=== PATIENT | male | born 1945 | race Caucasian/White ===

== ENCOUNTER → 2016-11-06 | Outpatient (REF) | payer MEDICARE | LOC: M SFHCPLAZ 13:20 | PROVIDERS: ATTEND Family Medicine | DX: Z12.11 Encounter for screening for malignant neoplasm of colon (principal) ==

== ENCOUNTER → 2016-11-09 | Outpatient (CLI) | payer BC, MEDICARE ==
[2016-11-09 09:16] LABS: CALCIUM LEVEL 9.4 MG/DL (8.8-10.2); CREATININE FOR GFR 1.33 MG/DL (0.70-1.30); GLOMERULAR FILTRATION RATE 56.3 (>42); POTASSIUM SERUM 5.1 MEQ/L (3.5-5.1)
== END ==
LOC: M LAB 08:27
PROVIDERS: ATTEND Family Medicine
DX: E66.9 Obesity, unspecified (principal)

== ENCOUNTER → 2016-11-16 | Outpatient (CLI) | payer MEDICARE ==
--- NOTE | 2016-11-16 09:57 | REP ---
ABDOMINAL AORTIC ULTRASOUND: 11/16/2016. Clinical history: Tobacco use. Evaluate for atherosclerotic disease. No comparison study. Findings: The abdominal aorta from proximal to renal artery level is very poorly evaluated due to extensive gas shadowing and precise measurements cannot be made as it is not well visualized. The mid aorta below the renal artery shows AP diameter 1.6 cm x 2.4 cm transverse. The distal aorta shows slight aneurysmal dilatation up to 3.1 cm AP x 2.9 cm transverse. Both common iliac arteries are ectatic with the right 1.8 cm and the left 1.6 cm. There are atherosclerotic changes circumferentially in the mid to distal aorta. Impression: 1. 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 Atherosclerotic plaque and ectatic bilateral common iliac arteries. The proximal aorta is obscured by extensive gas shadowing. Signed by Naeem Matthew MD 11/16/2016 10:18 A
== END ==
LOC: M RAD 07:52
PROVIDERS: ATTEND Family Medicine
DX: Z87.891 Personal history of nicotine dependence (principal); I71.4 Abdominal aortic aneurysm, without rupture; I25.10 Atherosclerotic heart disease of native coronary artery without angina pectoris

== ENCOUNTER → 2016-11-20 | Outpatient (REF) | payer MEDICARE, BC ==
[2016-11-20 12:05] LABS: ANION GAP 8 MEQ/L (8-16); BLOOD UREA NITROGEN 24 MG/DL (7-18); CALCIUM LEVEL 9.6 MG/DL (8.8-10.2); CARBON DIOXIDE LEVEL 29 MEQ/L (21-32); CHLORIDE LEVEL 105 MEQ/L (98-107); CREATININE FOR GFR 1.24 MG/DL (0.70-1.30); GLOMERULAR FILTRATION RATE > 60.0 (>42); GLUCOSE, FASTING 87 MG/DL (83-110); POTASSIUM SERUM 4.2 MEQ/L (3.5-5.1); SODIUM LEVEL 142 MEQ/L (136-145)
== END ==
LOC: M SFHCPLAZ 09:18
PROVIDERS: ATTEND Family Medicine
DX: R79.89 Other specified abnormal findings of blood chemistry (principal)

== ENCOUNTER → 2017-01-15 | Day surgery (SDC) | payer MEDICARE ==
[~2017-01-15] VITALS: Ht 175.3 cm; Wt 104.3 kg
[~2017-01-15] MED LIST: EPINEPHrine 1MG/ML INJ 30ML MD-VIAL As Ordered ONE; EPINEPHrine INJ 1 MG/ML 1ML VIAL/AMP ONE; GLYCOPYRROLATE INJ 0.2 MG/ML 2 ML VIAL As Ordered ONE; LIDOCAINE 2% INJ 100 MG/5 ML SDV (FOR ANES.) As Ordered ONE; LR 1,000 ML IV SCH; MIDAZOLAM INJ 2 MG/2 ML VIAL (J2250) As Ordered ONE; MIDAZOLAM INJ 2 MG/2 ML VIAL (J2250) IV ONE; NEOSTIGMINE 1MG/ML 5 ML SYRINGE (J2710) As Ordered ONE; ONDANSETRON 4MG/2ML VIAL (J2405) As Ordered ONE; ONDANSETRON 4MG/2ML VIAL (J2405) IV PRN; PERCOCET 5MG/325MG TAB PO PRN; PHENYLephrine HCL 500 MCG/5 ML (100MCG/ML) SYRINGE (J2370) As Ordered ONE; PROPOFOL 200 MG/20 ML VIAL As Ordered ONE; ROCURONIUM BROMIDE 50 MG/5 ML VIAL As Ordered ONE; ROPIvacaine 0.5% 30 ML INJECTION (J2795) ONE; SUCCINYLCHOLINE 100 MG/5 ML SYRINGE (J0330) As Ordered ONE; dexameTHASONE 10 MG/1 ML VIAL PRES.FREE (J1100) ONE; ePHEDrine SULFATE 25 MG/5 ML(5MG/ML) SYRINGE As Ordered ONE; fentaNYL 100 MCG/2 ML INJECTION (J3010) As Ordered ONE; fentaNYL 100 MCG/2 ML INJECTION (J3010) IV ONE; fentaNYL 100 MCG/2 ML INJECTION (J3010) IV PRN; fentaNYL 250 MCG/5 ML INJECTION (J3010) As Ordered ONE
[2017-01-15 20:00] VITALS: BP 126/72
--- NOTE | 2017-01-15 23:45 | RO ---
DATE OF PROCEDURE: 01/15/2017 PREOPERATIVE DIAGNOSIS: Left shoulder recurrent massive rotator cuff tear. POSTOPERATIVE DIAGNOSIS: Left shoulder recurrent massive rotator cuff tear. PROCEDURE: 1. Left shoulder revision rotator cuff repair using arthroscopic Double-Row SpeedBridge technique. 2. Left shoulder arthroscopic biceps tenotomy. SURGEON: Dr. Floridalma Lucas SPECIAL WARFARE OPERATOR: Mr. Elmer Perez ANESTHESIA: General endotracheal tube anesthesia with left interscalene nerve block. COMPLICATIONS: None. FINDINGS: He had a massive tear involving the entire supraspinatus and part of the infraspinatus and the upper border of the subscapularis was frayed and partially torn, but the biceps was dislocated anteriorly. There was quite a bit of glenohumeral degenerative arthritis but no full thickness chondral defects were noted but his shoulder was clearly quite frayed. There was extensive scarring in the subacromial space from the prior open rotator cuff repair surgery, making visualization quite difficulty but eventually we were able to get a reasonable repair. DESCRIPTION OF PROCEDURE: Antibiotics were given intravenously preoperatively, then successful left interscalene nerve block and then a general endotracheal tube anesthetic was established, and he was placed in a semi-beach chair position. Spider shoulder miller was utilized. His left shoulder area was prepped and draped in the usual sterile fashion, then a routine diagnostic arthroscopy was performed through a posterior portal. The shoulder was noted to be quite arthritic with a significant amount of chondromalacia, which was debrided with a shaver. The biceps was subluxed medially. Because of that, I eventually released the biceps with the ablator wand and then readily was observable a large rotator cuff tear. Thus, I repositioned the scope such more in the subacromial space but it was in the bursa, and it took quite a bit of time to understand the fibrotic bursa and separate that out from the torn rotator cuff. But, eventually, I was able to get reasonable visualization, but it took quite a bit of time and careful dissection. We identified the previously placed cottony Deknatel sutures that were in the greater tuberosity. These were carefully removed with a pituitary rongeur, and then I was able to debride the supraspinatus and infraspinatus footprint of the greater tuberosity with the shaver and the ring curette and the ablator wand. Eventually, I was able to get reasonable visualization and then the rotator cuff was a little bit fibrotic but I felt still repairable. I tried to mobilize as much as I could on the bursal and the articular surface of the rotator cuff. It was basically a large crescent-shaped type tear. Once I had adequate visualization, then I placed two medial row anchors from the SpeedBridge suture kit and then passed all the limbs first, and used the retention sutures as horizontal mattress rip-stop sutures using [place] slider knots. I passed the anterior anchor first and then the posterior after passing the sutures, and then I began tying, beginning posteriorly but first the horizontal mattress rip-stop posteriorly was tied, limbs kept long and then I tied the anteromedial row rip-stop sutures with the [place] slider knot and several half hitches. Once those had all been tied, I then fixed the anterolateral row first by grabbing a suture limb from each of the anchors and loading them onto a lateral row SwiveLock and used the punch to make a hole and advance the anterolateral row anchor, making sure there was adequate tension on all the suture limbs and then inserted the SwiveLock with good fixation and then the limbs were cut short. The remaining sutures were passed through another SwiveLock for the posterolateral row and a punch was placed appropriately, then the SwiveLock advanced, and then secured all those suture limbs into the greater tuberosity. A nice repair was actually felt to have been obtained. Good photographic documentation was obtained. I brought the shoulder through a range of motion as I visualized arthroscopically, and there was good watertight closure. However, it is noteworthy, that this was a fairly large tear and the quality of the rotator cuff tendon tissue was a bit suspect. Thus, I am going to treat this postoperatively as a massive tear, keeping him for prolonged periods of time in his abduction pillow brace. Finding no other arthroscopically treatable pathology, I copiously irrigated out the subacromial space. The wounds were closed with interrupted nylon sutures, covered by Adaptic dry sterile bulky dressing. He was placed in his abduction pillow brace. Mr. Elmer Perez was critical to the success of the procedure by helping to position the patient, helped to manipulate the arm and to help pass sutures and close the wound, and helped position the patient on and off the operating table to help the operation go smoothly and efficiently.
== END | disposition home or self-care (01) ==
LOC: M SDC 08:55
PROVIDERS: ATTEND Orthopaedic Surgery
DX: M75.102 Unspecified rotator cuff tear or rupture of left shoulder, not specified as traumatic (principal); Z88.1 Allergy status to other antibiotic agents; Z87.891 Personal history of nicotine dependence
CPT/HCPCS: 29827; 29828; 64415; A4649; J0330; J0690; J1100; J2250; J2370; J2405; J2710; J2795; J3010

== ENCOUNTER → 2018-05-20 | Outpatient (CLI) | payer MEDICARE ==
[2018-05-20 09:59] LABS: ANION GAP 7 MEQ/L (8-16); BLOOD UREA NITROGEN 19 MG/DL (7-18); CALCIUM LEVEL 9.4 MG/DL (8.8-10.2); CARBON DIOXIDE LEVEL 26 MEQ/L (21-32); CHLORIDE LEVEL 107 MEQ/L (98-107); CREATININE FOR GFR 1.23 MG/DL (0.70-1.30); GLOMERULAR FILTRATION RATE > 60.0 (>42); GLUCOSE, FASTING 81 MG/DL (70-100); POTASSIUM SERUM 4.3 MEQ/L (3.5-5.1); SODIUM LEVEL 140 MEQ/L (136-145)
== END ==
LOC: M LAB 08:51
DX: R79.89 Other specified abnormal findings of blood chemistry (principal)
CPT/HCPCS: 80048

== ENCOUNTER 2018-08-17 10:15 | Emergency (ER) | payer MEDICARE ==
[2018-08-17 11:20] LABS: KETONE, URINE AUTO RFX NEGATIVE (NEGATIVE); LEUKOCYTE ESTERASE UR AUTO RFX NEGATIVE (NEGATIVE); MUCUS, URINE RFX SMALL (NEGATIVE); NITRITE, URINE AUTO RFX NEGATIVE (NEGATIVE); RBC, URINE AUTO RFX TNTC /HPF (0-3); SPECIFIC GRAVITY UR AUTO RFX 1.025 (1.002-1.035); SQUAM EPITHELIAL CELL UR AURFX 0 /HPF (0-6); WBC, URINE AUTO RFX 4 /HPF (0-3)
[2018-08-17] MEDS: NS 1,000 ML IV (12:39)
[2018-08-17 12:54] LABS: BASO % 0.4 % (0.0-1.0); EOS # 0.2 10^3/uL (0.0-0.50); EOS % 2.9 % (0.0-3.0); HEMATOCRIT 41.6 % (42.0-52.0); HEMOGLOBIN 14.1 g/dl (13.5-17.5); IMMATURE GRANULOCYTE % 0.4 % (0-3.0); LYMPH % 27.2 % (24.0-44.0); MEAN CORPUSCULAR HEMOGLOBIN 29.6 pg (27.0-33.0); MEAN CORPUSCULAR HGB CONC 33.9 g/dl (32.0-36.5); MEAN CORPUSCULAR VOLUME 87.2 fl (80.0-96.0); MONO # 0.7 10^3/uL (0.0-0.8); MONO % 9.3 % (0.0-5.0); NEUTROPHILS # 4.3 10^3/uL (1.8-7.7); NEUTROPHILS % 59.8 % (36.0-66.0); PLATELET COUNT, AUTOMATED 148 10^3/uL (150-450); RED BLOOD COUNT 4.77 10^6/uL (4.30-6.10); RED CELL DISTRIBUTION WIDTH 12.3 % (11.5-14.5); WHITE BLOOD COUNT 7.2 10^3/uL (4.0-10.0)
[2018-08-17 13:06] LABS: INR 1.03; PROTHROMBIN TIME 13.6 SECONDS (12.1-14.4)
[2018-08-17 13:07] LABS: PARTIAL THROMBOPLASTIN TIME 32.6 SECONDS (25.4-37.6)
[2018-08-17 13:26] LABS: ALBUMIN/GLOBULIN RATIO 1.29 (1.00-1.93); ALKALINE PHOSPHATASE 70 U/L (45-117); ALT/SGPT 35 U/L (12-78); ANION GAP 8 MEQ/L (8-16); AST/SGOT 24 U/L (7-37); BILIRUBIN,DIRECT 0.2 MG/DL (0.0-0.2); BILIRUBIN,TOTAL 0.4 MG/DL (0.2-1.0); BLOOD UREA NITROGEN 23 MG/DL (7-18); CALCIUM LEVEL 9.4 MG/DL (8.8-10.2); CARBON DIOXIDE LEVEL 26 MEQ/L (21-32); CHLORIDE LEVEL 108 MEQ/L (98-107); CREATININE FOR GFR 1.07 MG/DL (0.70-1.30); GLOMERULAR FILTRATION RATE > 60.0 (>42); GLUCOSE, FASTING 81 MG/DL (70-100); POTASSIUM SERUM 4.2 MEQ/L (3.5-5.1); SODIUM LEVEL 142 MEQ/L (136-145); TOTAL PROTEIN 7.1 GM/DL (6.4-8.2)
[2018-08-17] MEDS ORDERED: ISOVUE-370 76% 100ML VIAL (Q9967) As Ordered (13:29)
== END 2018-08-17 14:40 | disposition home or self-care (01) ==
LOC: M ED 10:15
DX: R31.0 Gross hematuria (principal); N40.0 Benign prostatic hyperplasia without lower urinary tract symptoms; I71.9 Aortic aneurysm of unspecified site, without rupture; I70.1 Atherosclerosis of renal artery; N32.9 Bladder disorder, unspecified; K57.90 Diverticulosis of intestine, part unspecified, without perforation or abscess without bleeding; Z87.891 Personal history of nicotine dependence
CPT/HCPCS: Q9967

== ENCOUNTER → 2018-09-07 | Outpatient (CLI) | payer MEDICARE ==
[2018-09-07 12:48] LABS: ANION GAP 8 MEQ/L (8-16); BLOOD UREA NITROGEN 20 MG/DL (7-18); CALCIUM LEVEL 9.2 MG/DL (8.8-10.2); CARBON DIOXIDE LEVEL 26 MEQ/L (21-32); CHLORIDE LEVEL 105 MEQ/L (98-107); CREATININE FOR GFR 1.14 MG/DL (0.70-1.30); GLOMERULAR FILTRATION RATE > 60.0 (>42); GLUCOSE, FASTING 76 MG/DL (70-100); POTASSIUM SERUM 4.3 MEQ/L (3.5-5.1); PSA SCREENING 47.5 NG/ML (< 4.0); SODIUM LEVEL 139 MEQ/L (136-145)
== END ==
LOC: M SMT 10:40
DX: N40.2 Nodular prostate without lower urinary tract symptoms (principal); R31.0 Gross hematuria
CPT/HCPCS: 80048

== ENCOUNTER → 2018-09-07 | Outpatient (REF) | payer MEDICARE | LOC: M SMT 13:03 | DX: R31.0 Gross hematuria (principal); N40.2 Nodular prostate without lower urinary tract symptoms | CPT/HCPCS: 80048; 87086 ==

== ENCOUNTER → 2018-11-08 | Outpatient (CLI) | payer MEDICARE ==
--- NOTE | 2018-11-08 10:34 | REP ---
Clinical: Hypertension and atherosclerotic disease. Technique: Bush scale and color Doppler evaluation of the kidneys and renal vasculature using curved array transducer. Findings: The kidneys are normal in reniform shape and size with increased central sinus fat and findings to suggest renovascular calcifications without hydronephrosis, cystic or renal mass lesion. No perinephric fluid collection identified. Right kidney measures 10.3 x 5.7 x 5.8 cm . Left kidney measures 11.4 x 6.0 x 6.5 cm. Significant atherosclerotic changes of the aorta are appreciated and there is evidence for a distal aortic aneurysm measuring 3.6 x 3.2 cm maximal diameter and approximately 4.2 cm craniocaudal length. By sonographic evaluation, the right iliac artery measures 1.7 cm maximal diameter while the left iliac artery measures 1.6 cm maximal diameter and appear ectatic with associated atherosclerotic changes noted. Color Doppler evaluation of the renal vasculature was attempted but severely limited due to overlying bowel gas and body habitus. Intra renal Doppler wave patterns are normal in appearance and velocity. Right Kidney: Peak arterial velocity: 25 cm/sec . Renal aortic ratio: Cannot be calculated. Resistive indices: 0.60 - 0.65 . Acceleration times: 0.059 . Left kidney: Peak arterial velocity: 143 cm/sec . Renal aortic ratio: Cannot be calculated. Resistive indices: 0.62 - 0.66 . Acceleration times: 0.015 - 0.037 . Impression: 1. Limited evaluation of the abdominal aorta suggests infrarenal aneurysm measuring 3.6 cm maximal diameter along with significant atherosclerotic changes which limit evaluation. 2. Kidneys demonstrate chronic medical renal disease without hydronephrosis. 3. Doppler interrogation is significantly limited. There is no indirect evidence to suggest renal arterial stenosis, but further evaluation using MRA technique may be warranted for more definitive evaluation. Electronically Signed by Sagar Rm MD 11/08/2018 10:25 A
== END ==
LOC: M RAD 07:48
PROVIDERS: ATTEND Surgery Vascular Surgery
DX: I70.1 Atherosclerosis of renal artery (principal); I71.4 Abdominal aortic aneurysm, without rupture; N18.9 Chronic kidney disease, unspecified

== ENCOUNTER → 2018-11-08 | Outpatient (CLI) | payer MEDICARE ==
--- NOTE | 2018-11-09 09:10 | REP ---
WHOLE BODY BONE SCAN: Following the intravenous administration of 22 mCi of technetium 99m MDP, patient's whole body is imaged in the anterior and posterior projections. Additional oblique and lateral views are also obtained. There is a focus of increased uptake in the anterior left 7th rib near the costochondral junction. This is most likely posttraumatic. There is increased uptake in the region of the right maxillary sinus. This is probably due to sinusitis. There is mild scattered uptake throughout the spine in a pattern most compatible with diffuse degenerative changes. Arthritic uptake is seen in both wrists and shoulders. Otherwise there is no compelling scintigraphic evidence of osseous metastases. Renal and bladder activity are seen. IMPRESSION: Focus of increased uptake in the anterior left 7th rib is most likely posttraumatic. There is increased uptake in the region of the right maxillary sinus likely representing sinusitis. There are other scattered areas of uptake which appear to be arthritic in etiology. No compelling scintigraphic evidence of osseous metastases. Electronically Signed by Remington Bush MD 11/09/2018 12:24 P
== END ==
LOC: M RAD 07:44
PROVIDERS: ATTEND Urology
DX: C61 Malignant neoplasm of prostate (principal); I70.1 Atherosclerosis of renal artery; I71.4 Abdominal aortic aneurysm, without rupture; N18.9 Chronic kidney disease, unspecified
CPT/HCPCS: 76770; 78306; 93975; A9503

== ENCOUNTER → 2018-12-06 | Outpatient (CLI) | payer MEDICARE ==
--- NOTE | 2018-12-12 10:50 | RADONC ---
RADIATION ONCOLOGY CONSULTATION DATE OF SERVICE: 12/06/2018 CHART NUMBER: [id number] DIAGNOSIS: Prostate cancer. STAGE: Stage III A, [id number], Lindsay score 8 (4+4) Grade group 4, PSA 47.5. ECOG PERFORMANCE STATUS: 0. CONSULTATION NOTE: Mr. Sullivan is a very pleasant 73-year-old white male with the diagnosis of what appears to be a stage III A, [id number] poorly differentiated Lindsay score 8 (4+4) adenocarcinoma of the prostate with a PSA level of 47.5 who is presenting to me today for consideration of definitive external beam radiation therapy with IMRT / IGRT. HISTORY OF PRESENT ILLNESS: The patient was in his usual state of health until 09/07/2018 when a PSA was done and found to be 47.5. On 10/19/2018, the patient underwent prostatic needle biopsy and pathology revealed a [place] score 8 (4+4) adenocarcinoma of the prostate involving his prostate bilaterally. There were areas of focal perineural invasion and some cores reached 100% involvement. A bone scan was done and failed to show any definitive evidence of metastatic disease. The patient is now being referred for consideration of definitive external beam radiation therapy with IMRT / IGRT. The fiducial markers are scheduled to be placed on 12/13/2018. He has already initiated hormonal therapy. PAST MEDICAL HISTORY: The patient's past medical history is positive for arthritis, fatty liver and diverticulosis. He reports that he has had an abdominal aortic aneurysm. He had a vasectomy in the past. ALLERGIES: The patient is allergic to DOXYCYCLINE. SOCIAL HISTORY: The patient has smoked one pack of cigarettes per day for 30 years. He quit in 1995. He drinks alcohol socially. FAMILY HISTORY: The patient's family history is positive for mother with pancreatic cancer. REVIEW OF SYSTEMS: The patient's review of systems is basically noncontributory. Denies nausea, vomiting, fevers, chills, night sweats, diplopia, headaches, anxiety or depression, anorexia, weight loss, visual disturbances, chest pain, urinary or bowel difficulties, bone pain, or neurological problems. PHYSICAL EXAMINATION: The patient is a well-developed, well-nourished male in no acute distress. HEENT exam is normocephalic, atraumatic. Extraocular movements are intact. There is no palpable cervical, supraclavicular, infraclavicular, axillary, or inguinal lymphadenopathy present. Lungs are clear to auscultation and percussion. Heart has a regular rate and rhythm. Abdomen is benign with no hepatosplenomegaly, masses, or tenderness. Rectal examination reveals a normal anal sphincter tone. His prostate is smooth with no evidence of nodularity. Skeletal examination reveals no tenderness to pressure or percussion of the bony skeleton. Extremities reveal no clubbing, cyanosis, or edema. Neurologic exam is grossly intact, as is the remainder of the physical examination. MEDICAL NECESSITY: IMRT/IGRT is clinically indicated for the highly conformal dose planning required. The target volume is in close proximity to critical structures, such as the rectum, bladder, small bowel, and femoral heads. The volume of interest must be covered with narrow margins to adequately protect immediately adjacent structures. The plan requires interpretation of complex testing such as CT localization. As noted above, special planning (IMRT) and localizing (IGRT) is required and essential to maximally protect sensitive normal tissue structures which cannot be accomplished using conventional 3-dimensional planning. ASSESSMENT: Clearly, Mr. Sullivan is a candidate for external beam radiation therapy and I have so informed him. I have discussed with the patient in detail the potential benefits, as well as possible acute and chronic sequelae for external beam radiation therapy. We discussed logistics of treatment planning, simulation and subsequent fractionated daily radiation treatments. I have scheduled the patient for simulation following placement of fiducial markers. Thank you for allowing us to participate in the care of this very pleasant gentleman. If I could be of any further assistance or provide you with any information, please feel free to contact me anytime. As always, warm regards, Remington Smith MD
== END ==
LOC: M ONCR 12:08
PROVIDERS: ATTEND Radiology Radiation Oncology
DX: C61 Malignant neoplasm of prostate (principal); Z80.0 Family history of malignant neoplasm of digestive organs; Z88.1 Allergy status to other antibiotic agents

== ENCOUNTER → 2018-12-13 | Outpatient (CLI) | payer MEDICARE ==
--- NOTE | 2018-12-13 13:38 | REP ---
Transrectal ultrasound guidance: History: Elevated PSA. Findings: Transrectal sonographic guidance is provided to Dr. Wallace who placed three prostate fiducial markers. Electronically Signed by Prosper Montalvo MD 12/13/2018 02:46 P
== END ==
LOC: M SMT 10:36
PROVIDERS: ATTEND Urology
DX: C61 Malignant neoplasm of prostate (principal)
CPT/HCPCS: 55876; 76872; 76942; 96402; A4648; J9217

== ENCOUNTER → 2019-02-07 | Outpatient (RCR) | payer MEDICARE ==
--- NOTE | 2019-01-10 14:47 | RADONC ---
RADIATION ONCOLOGY PROGRESS NOTE DATE: 01/09/2019 CHART NUMBER: [id number] Mr. Sullivan is presently at a dose of 540 cGy to his prostate and is tolerating treatments quite well at this point with no complaints related to his radiation therapy. He is having no urinary or bowel difficulties and no bone pain. The patient's review of systems is noncontributory. He denies nausea, vomiting, fevers, chills, night sweats, diplopia, headaches, anxiety or depression, anorexia, weight loss, visual disturbances, chest pain, urinary or bowel difficulties, bone pain, or neurological problems. PHYSICAL EXAMINATION: The patient's skin is in good condition with no evidence of radiation change present. There is no moist or dry desquamation. The remainder of his physical exam remains unchanged. Mr. Sullivan is tolerating treatments quite well and radiation will continue as scheduled.
--- NOTE | 2019-01-16 09:50 | RADONC ---
RADIATION ONCOLOGY PROGRESS NOTE: DATE: 01/16/2019 CHART NUMBER: [id number] Mr. Sullivan is presently a dose of 1440 cGy to his prostate and is tolerating treatments quite well at this point with no complaints related to his radiation therapy. He is having no urinary or bowel difficulties and no bone pain. REVIEW OF SYSTEMS: The patient's review of systems is noncontributory. He denies nausea, vomiting, fevers, chills, night sweats, diplopia, headaches, anxiety or depression, anorexia, weight loss, visual disturbances, chest pain, urinary or bowel difficulties, bone pain, or neurological problems. PHYSICAL EXAMINATION: The patient's skin is in good condition with no evidence of moist or dry desquamation. The remainder of his physical exam remains unchanged. Mr. Sullivan is tolerating treatments quite well and radiation will continue as scheduled.
--- NOTE | 2019-01-23 10:06 | RADONC ---
RADIATION ONCOLOGY PROGRESS NOTE DATE: 01/23/2019 CHART NUMBER: [id number] PROGRESS NOTE: Mr. Caruso with a diagnosis of adenocarcinoma of the prostate is currently receiving radiotherapy and his dose thus far is 2160 cGy of an anticipated 7920 cGy. He is tolerating his radiotherapy reasonably well. REVIEW OF SYSTEMS: He denies any nausea, vomiting, diarrhea, dysuria, hematuria or blood per rectum. His energy level is such that he is able to maintain most day-to-day activities without any alteration of his lifestyle. Skin irritation is not an issue for him. EXAMINATION FINDINGS: The skin within the irradiated volume shows no evidence of erythema and certainly no focal desquamation. Lymphatics: No palpable peripheral lymphadenopathy is appreciated. The remainder of the physical examination is unchanged. IMPRESSION: Tolerating therapy reasonably well. PLAN: Treatments to continue. MTDD
--- NOTE | 2019-02-01 10:45 | RADONC ---
RADIATION ONCOLOGY PROGRESS NOTE DATE OF SERVICE: 01/31/2019 CHART #: [id number] Mr. Sullivan is presently at a dose of 3240 cGy to his prostate and is tolerating treatments quite well at this point with no complaints related to his radiation therapy. He is having no urinary or bowel difficulties and no bone pain. REVIEW OF SYSTEMS: The patient's review of systems is noncontributory. Denies nausea, vomiting, fevers, chills, night sweats, diplopia, headaches, anxiety or depression, anorexia, weight loss, visual disturbances, chest pain, urinary or bowel difficulties, bone pain, or neurological problems. PHYSICAL EXAMINATION: The patient's skin is in good condition with no evidence of radiation change present. There is no moist or dry desquamation. The remainder of his physical exam remains unchanged. Mr. Sullivan is tolerating treatments quite well and radiation will continue as scheduled.
--- NOTE | 2019-02-08 07:47 | RADONC ---
RADIATION ONCOLOGY PROGRESS NOTE: DATE: 02/06/2019 CHART NUMBER: [id number] Mr. Sullivan is presently at a dose of 3780 cGy to his prostate and is tolerating treatments quite well at this point with no complaints related to his radiation therapy. He is having no urinary or bowel difficulties. No bone pain. REVIEW OF SYSTEMS: The patient's review of systems is noncontributory. He denies nausea, vomiting, fevers, chills, night sweats, diplopia, headaches, anxiety or depression, anorexia, weight loss, visual disturbances, chest pain, urinary or bowel difficulties, bone pain, or neurological problems. PHYSICAL EXAMINATION: The patient's skin is in good condition with no evidence of moist or dry desquamation. The remainder of his physical exam remains unchanged. Mr. Sullivan is tolerating treatments quite well and radiation will continue as scheduled.
== END ==
LOC: M ONCR 01-09 08:48
PROVIDERS: ATTEND Radiology Radiation Oncology
DX: C61 Malignant neoplasm of prostate (principal)

== ENCOUNTER → 2019-03-10 | Outpatient (RCR) | payer MEDICARE ==
--- NOTE | 2019-02-13 11:27 | RADONC ---
RADIATION ONCOLOGY PROGRESS NOTE DATE OF SERVICE: 02/13/2019 CHART NUMBER: [id number]. PROGRESS NOTE: Mr. Sullivan is presently at a dose of 4680 cGy to his prostate and is tolerating treatments quite well at this point with no complaints related to his radiation therapy. He is having no urinary or bowel difficulties and no bone pain. REVIEW OF SYSTEMS: The patient's review of systems is noncontributory. He denies nausea, vomiting, fevers, chills, night sweats, diplopia, headaches, anxiety or depression, anorexia, weight loss, visual disturbances, chest pain, urinary or bowel difficulties, bone pain, or neurological problems. . PHYSICAL EXAMINATION: The patient's skin is in good condition with no evidence of radiation change present. There is no moist or dry desquamation. The remainder of his physical exam remains unchanged. Mr. Sullivan is tolerating treatments quite well, and radiation will continue as scheduled. Edited 02/13/2019 aml
--- NOTE | 2019-02-20 13:36 | RADONC ---
RADIATION ONCOLOGY PROGRESS NOTE DATE: 02/20/2019 CHART #: [id number] PROGRESS NOTE: Mr. Sullivan has a diagnosis of adenocarcinoma of the prostate and we are treating him with radiotherapy. His current dose is 5400 cGy of an anticipated 7920 cGy. REVIEW OF SYSTEMS: The patient is tolerating his radiotherapy quite well, denying any nausea, vomiting, diarrhea, dysuria, hematuria or blood per rectum. His energy level is such that he is able to maintain most day-to-day activities without any alteration of his lifestyle. Skin irritation is not an issue for him. EXAMINATION FINDINGS: The skin within the irradiated volume shows neither erythema nor desquamation. Lymphatics: No palpable peripheral lymphadenopathy. The remainder of the physical examination is unchanged. IMPRESSION: Tolerating therapy well. PLAN: Treatments to continue. MTDD
--- NOTE | 2019-02-27 09:47 | RADONC ---
RADIATION ONCOLOGY PROGRESS NOTE: DATE: 02/27/2019 CHART NUMBER: [id number] Mr. Sullivan is presently at a dose of 6300 cGy to his prostate and is tolerating treatments quite well at this point with no complaints related to his radiation therapy. He is having no urinary or bowel difficulties and no bone pain. REVIEW OF SYSTEMS: The patient's review of systems is noncontributory. He denies nausea, vomiting, fevers, chills, night sweats, diplopia, headaches, anxiety or depression, anorexia, weight loss, visual disturbances, chest pain, urinary or bowel difficulties, bone pain, or neurological problems. PHYSICAL EXAMINATION: The patient's skin is in good condition with no evidence of radiation change present. There is no moist or dry desquamation. The remainder of his physical exam remains unchanged. Mr. Sullivan is tolerating treatments quite well and radiation will continue as scheduled.
--- NOTE | 2019-03-07 10:26 | RADONC ---
RADIATION ONCOLOGY PROGRESS NOTE DATE: 03/03/2019 CHART NUMBER: [id number] Mr. Sullivan is presently at a dose of 7020 cGy to his prostate as of Sunday, March 03, 2019. He did not come in for treatment today for personal reasons. As of Wednesday, he had been tolerating his treatments quite well with no significant difficulties related to his radiation therapy. PHYSICAL EXAMINATION: The patient's skin was in good condition with no evidence of moist or dry desquamation. The patient is scheduled to return to us to resume radiation tomorrow.
== END ==
LOC: M ONCR 02-08 08:17
PROVIDERS: ATTEND Radiology Radiation Oncology
DX: C61 Malignant neoplasm of prostate (principal)

== ENCOUNTER 2019-03-14 08:31 | Outpatient (RCR) | payer MEDICARE ==
--- NOTE | 2019-03-13 12:33 | RADONC ---
RADIATION ONCOLOGY PROGRESS NOTE DATE: 03/13/2019 CHART NUMBER: [id number] Mr. Sullivan, with a diagnosis of adenocarcinoma of the prostate, is presently receiving local regional radiotherapy and his dose as of today's date is 7740 cGy of an anticipated 7920 cGy. He has only one more treatment to complete his entire prescribed dose of radiotherapy. The treatments have in general gone well and he relates no specific untoward side effects. REVIEW OF SYSTEMS: He denies specifically any nausea, vomiting, diarrhea, dysuria, hematuria or blood per rectum. His energy level is such that he is able to maintain most day-to-day activities without any alteration of his lifestyle. Skin irritation is denied. He also denies any other issues with anxiety, coughing, sputum production, hemoptysis, night sweats, fevers or bone pain. EXAMINATION FINDINGS: Skin within the irradiated volume looks normal without evidence of erythema and certainly no focal desquamation. The remainder of the physical examination is unchanged. IMPRESSION: Tolerating therapy well. PLAN: The treatments will be completed tomorrow.
--- NOTE | 2019-03-15 07:49 | RADONC ---
RADIATION ONCOLOGY TREATMENT SUMMARY: DATE: 03/14/2019 CHART NUMBER: [id number] DIAGNOSIS: Prostate cancer. STAGE: III A, T2c N0 M0, Lindsay 8(4+ 4), group grade 4, PSA 47.5. ECOG PERFORMANCE STATUS: 0. PLAN OF RADIOTHERAPY: Local regional radiotherapy for local regional control. DATE RADIOTHERAPY STARTED: 01/05/2019. DATE RADIOTHERAPY COMPLETED: 03/14/2019. DOSE: The patient was treated to a total of 7920 cGy administered in 44 fractions over 70 elapsed days. Prior to treatment delivery localization was accomplished upon our CT simulator and treatment portals were defined by the use of multiple leaf collimators. Treatment was employed via the use of IMRT/IGRT. Initially the limited pelvis received a total of 4500 cGy administered at conventional fractionation for 25 fractions via IMRT/IGRT. Thereafter, field reductions were made to include the prostate and seminal vesicles for an additional 900 cGy. The graves were thereafter further reduced to include just the prostate area without the seminal vesicles for an additional 2520 cGy. This brought the total dose to the aforementioned 7920 cGy administered in 44 fractions over a 70 elapsed date. The patient was treated with a 6MV photon beam 100 cm SAD isocenter technique. Again via IMRT /IGRT. STATUS OF TUMOR: There was no evidence of tumor progression locally nor was there clinical evidence of distant metastatic spread during his course of radiotherapy. TOLERANCE: In general, the treatments were well tolerated as he denied any nausea, vomiting, diarrhea, dysuria, hematuria or blood per rectum. His energy level remained fairly constant during his radiotherapy and he was able to perform many day-to-day activities without any significant alteration of his lifestyle. DISPOSITION: Return to clinic in 1 month for post radiotherapy followup visit and he was instructed to return to his referring physicians as per their directions and instructions. Thank you for allowing us the opportunity of participation in the joint management of this very fine gentleman. cc: MD Charu Aly MD [facility]ITAL[facility]
== END 2019-04-09 ==
LOC: M ONCR 08:31
PROVIDERS: ATTEND Radiology Radiation Oncology
DX: C61 Malignant neoplasm of prostate (principal)

== ENCOUNTER → 2019-04-10 | Outpatient (REF) | payer MEDICARE | LOC: M LABDRAWC 16:22 | PROVIDERS: ATTEND Radiology Radiation Oncology | DX: C61 Malignant neoplasm of prostate (principal) ==

== ENCOUNTER → 2019-04-12 | Outpatient (CLI) | payer MEDICARE ==
--- NOTE | 2019-04-13 09:50 | RADONC ---
RADIATION ONCOLOGY FOLLOWUP NOTE DATE: 04/12/2019 CHART NUMBER: [id number] DIAGNOSIS: Prostate cancer. STAGE: IIIA, D1nP6M5, Lindsay score 8 (4+ 4), grade group 4, PSA originally 47.5. ECOG PERFORMANCE STATUS: 0. FOLLOWUP NOTE: Mr. Sullivan returns today for a followup visit having completed a course of local regional radiotherapy to definitively treat his prostate cancer on 03/14/2019. He tolerated his radiotherapy reasonably well and returns today for a followup visit with no specific complaints referable to his disease or to his treatments. His most recent PSA obtained on 04/10/2019 was 1.63 ng/dl. REVIEW OF SYSTEMS: He denies any nausea, vomiting, diarrhea, dysuria, hematuria or blood per rectum. His energy level is such that he is able to maintain most of his day-to-day activities without any alteration of his lifestyle. Skin irritation is denied. He also denies any other issues with regard to anxiety, coughing, sputum production, hemoptysis, night sweats, fevers or bone pain. EXAMINATION FINDINGS: Skin within the irradiated volume looks normal. Lymphatics: There is no palpable peripheral lymphadenopathy appreciated in the cervical, supraclavicular, axillary or inguinal lymph node chains. Lungs: Clear to auscultation and percussion. Heart: Regular without murmurs. Abdomen: Without evidence of hepatomegaly, masses or deep abdominal tenderness. Extremities: Without cyanosis, clubbing or edema. Neurologic: Examination grossly physiologic and nonfocal. Rectal: Examination essentially negative. IMPRESSION: Clinically GUSTABO at this time with a recent PSA revealing a level of 1.63 ng/ml. PLAN: Return to clinic in 6 months and he was instructed to return to his referring physicians as per their directions and instructions. cc: MD Charu Aly MD
== END ==
LOC: M ONCR 08:52
PROVIDERS: ATTEND Radiology Radiation Oncology
DX: Z85.46 Personal history of malignant neoplasm of prostate (principal); Z92.3 Personal history of irradiation

== ENCOUNTER → 2019-05-30 | Outpatient (CLI) | payer MEDICARE ==
[2019-05-30 17:15] LABS: HEMATOCRIT 42.5 % (42.0-52.0); MEAN CORPUSCULAR HEMOGLOBIN 29.5 pg (27.0-33.0); MEAN CORPUSCULAR HGB CONC 32.9 g/dl (32.0-36.5); MEAN CORPUSCULAR VOLUME 89.7 fl (80.0-96.0); PLATELET COUNT, AUTOMATED 116 10^3/uL (150-450); RED BLOOD COUNT 4.74 10^6/uL (4.30-6.10); WHITE BLOOD COUNT 4.8 10^3/uL (4.0-10.0)
[2019-05-30 17:33] LABS: ALBUMIN 4.1 GM/DL (3.2-5.2); ALT/SGPT 31 U/L (12-78); BILIRUBIN,TOTAL 0.4 MG/DL (0.2-1.0); BLOOD UREA NITROGEN 21 MG/DL (7-18); CALCIUM LEVEL 9.7 MG/DL (8.8-10.2); CARBON DIOXIDE LEVEL 27 MEQ/L (21-32); CHLORIDE LEVEL 106 MEQ/L (98-107); CHOLESTEROL LEVEL 213 MG/DL (<200); CHOLESTEROL RISK RATIO 4.346 (<5); CREATININE FOR GFR 1.21 MG/DL (0.70-1.30); GLOMERULAR FILTRATION RATE > 60.0 (>42); GLUCOSE, FASTING 96 MG/DL (70-100); HDL CHOLESTEROL 49 MG/DL (>40); LDL CHOLESTEROL 121 MG/DL (<100); NON-HDL-C 164 MG/DL; POTASSIUM SERUM 4.2 MEQ/L (3.5-5.1); SODIUM LEVEL 141 MEQ/L (136-145); TRIGLYCERIDES LEVEL 216 MG/DL (<150)
== END ==
LOC: M SMT 11:36
PROVIDERS: ATTEND Family Medicine
DX: D69.6 Thrombocytopenia, unspecified (principal); K76.0 Fatty (change of) liver, not elsewhere classified; E78.2 Mixed hyperlipidemia

== ENCOUNTER → 2019-05-30 | Outpatient (CLI) | payer MEDICARE | LOC: M SMT 11:34 | PROVIDERS: ATTEND Urology | DX: C61 Malignant neoplasm of prostate (principal) ==

== ENCOUNTER → 2019-09-20 | Outpatient (CLI) | payer MEDICARE ==
--- NOTE | 2019-09-20 11:52 | RADONC ---
RADIATION ONCOLOGY FOLLOWUP NOTE DATE: 09/20/2019 CHART NUMBER: [id number] DIAGNOSIS: Prostate cancer. STAGE: III A, T2c, N0, M0, [place] score 8 (4-4), grade group 4, original PSA 47.5. ECOG PERFORMANCE STATUS: 0 FOLLOWUP NOTE: Mr. Sullivan is a very pleasant 74-year-old white male with the diagnosis of a stage III A, [id number], Lindsay score 8 (4-4) poorly differentiated adenocarcinoma of the prostate with an original PSA level of 47.5 who is presenting to us today for routine followup visit 6 months post completion of external beam radiation therapy. The patient presents today reporting that he is doing quite well with no complaints at this time related to his radiation therapy or disease. He is having no urinary or bowel difficulties and no bone pain. REVIEW OF SYSTEMS: The patient's review of systems is noncontributory. Denies nausea, vomiting, fevers, chills, night sweats, diplopia, headaches, anxiety or depression, anorexia, weight loss, visual disturbances, chest pain, urinary or bowel difficulties, bone pain, or neurological problems. PHYSICAL EXAMINATION: The patient is a well-developed, well-nourished male in no acute distress. HEENT exam is normocephalic, atraumatic. Extraocular movements are intact. There is no palpable cervical, supraclavicular, infraclavicular, axillary, or inguinal lymphadenopathy present. Lungs are clear to auscultation and percussion. Heart has a regular rate and rhythm. Abdomen is benign with no hepatosplenomegaly, masses, or tenderness. Rectal examination reveals a normal anal sphincter tone. His prostate is smooth with no evidence of nodularity. Skeletal examination reveals no tenderness to pressure or percussion of the bony skeleton. Extremities reveal no clubbing, cyanosis, or edema. Neurologic exam is grossly intact, as is the remainder of the physical examination. ASSESSMENT: The patient is clinically doing quite well at this time. He is being followed and managed closely by his urologist Dr. Rodney Wallace and is undergoing androgen deprivation therapy through his office. In light of his close management and followup with his urologist, I am discharging this patient from my followup except on a p.r.n. basis. The patient has my cell phone number and office number if I could be of any assistance to him in the meantime. cc: MD Charu Aly MD
== END ==
LOC: M ONCR 08:50
PROVIDERS: ATTEND Radiology Radiation Oncology
DX: C61 Malignant neoplasm of prostate (principal)

== ENCOUNTER → 2019-10-17 | Outpatient (CLI) | payer MEDICARE | LOC: M PLALAB 13:35 | PROVIDERS: ATTEND Urology | DX: C61 Malignant neoplasm of prostate (principal) ==

== ENCOUNTER → 2019-12-13 | Outpatient (REF) | payer MEDICARE ==
[2019-12-13 15:52] LABS: CHLAMYDIA DNA AMPLIFICATION NEGATIVE (NEGATIVE); GC DNA AMPLIFICATION NEGATIVE (NEGATIVE)
== END ==
LOC: M SFHCPLAZ 11:38
PROVIDERS: ATTEND Family Medicine
DX: C61 Malignant neoplasm of prostate (principal); Z11.3 Encounter for screening for infections with a predominantly sexual mode of transmission

== ENCOUNTER → 2019-12-27 | Outpatient (CLI) | payer MEDICARE ==
[2019-12-27 18:59] LABS: HIV 1&2 SCREEN CENTAUR NEGATIVE (NEGATIVE)
== END ==
LOC: M PLALAB 14:43
PROVIDERS: ATTEND Family Medicine
DX: Z11.3 Encounter for screening for infections with a predominantly sexual mode of transmission (principal)

== ENCOUNTER → 2019-12-29 | Outpatient (REF) | payer MEDICARE | LOC: M SFHCPLAZ 13:12 | PROVIDERS: ATTEND Family Medicine | DX: Z11.3 Encounter for screening for infections with a predominantly sexual mode of transmission (principal); C61 Malignant neoplasm of prostate ==

== ENCOUNTER → 2019-12-29 | Outpatient (CLI) | payer MEDICARE ==
[2020-01-02 00:06] LABS: HSV TYPE I IgM AB <1:10 titer (<1:10); HSV TYPE II IgG SPECIFIC <0.91 index (0.00-0.90); HSV TYPE II IgM ABY <1:10 titer (<1:10)
== END ==
LOC: M PLALAB 13:03
PROVIDERS: ATTEND Family Medicine
DX: Z20.828 Contact with and (suspected) exposure to other viral communicable diseases (principal)

== ENCOUNTER → 2020-01-17 | Outpatient (REF) | payer MEDICARE | LOC: M PLALAB 12:42 | PROVIDERS: ATTEND Urology | DX: C61 Malignant neoplasm of prostate (principal) ==

== ENCOUNTER → 2020-01-24 | Outpatient (REF) | payer MEDICARE ==
[2020-01-24 13:55] LABS: HEMATOCRIT 43.3 % (42.0-52.0); HEMOGLOBIN 14.2 g/dl (13.5-17.5); MEAN CORPUSCULAR HEMOGLOBIN 28.4 pg (27.0-33.0); MEAN CORPUSCULAR HGB CONC 32.8 g/dl (32.0-36.5); MEAN CORPUSCULAR VOLUME 86.6 fl (80.0-96.0); PLATELET COUNT, AUTOMATED 149 10^3/uL (150-450); WHITE BLOOD COUNT 5.7 10^3/uL (4.0-10.0)
== END ==
LOC: M SFHCPLAZ 12:22
PROVIDERS: ATTEND Family Medicine
DX: D69.6 Thrombocytopenia, unspecified (principal)
CPT/HCPCS: 85027; G0463

== ENCOUNTER → 2020-04-24 | Outpatient (CLI) | payer MEDICARE | LOC: M PLALAB 12:46 | PROVIDERS: ATTEND Urology | DX: C61 Malignant neoplasm of prostate (principal) ==

== ENCOUNTER → 2020-06-13 | Outpatient (CLI) | payer MEDICARE ==
--- NOTE | 2020-07-10 09:55 | REP ---
ABDOMINAL AORTIC ULTRASOUND CLINICAL: History of abdominal aortic aneurysm. COMPARISON: 11/16/2016. TECHNIQUE: Real-time jerry scale and color Doppler evaluation using curved array transducer. FINDINGS: Examination is significantly limited due to overlying bowel gas. Portions of the distal aorta are identified and measure 3.3 x 4.7 cm maximal diameter. The right iliac artery measures 1.4 x 2.1 cm in maximal diameter. The left iliac artery measures 1.4 x 1.8 cm maximal diameter. IMPRESSION: Markedly limited examination due to overlying bowel gas. Distal aorta demonstrates mild stable aneurysmal dilatation. Consider follow-up pre- and postcontrast CT of the abdomen and pelvis for further investigation if necessary. GIANNAD
== END ==
LOC: M RAD 06:10
PROVIDERS: ATTEND Physician Assistant
DX: I71.4 Abdominal aortic aneurysm, without rupture (principal)

== ENCOUNTER → 2020-07-23 | Outpatient (REF) | payer MEDICARE | LOC: M PLALAB 14:53 | PROVIDERS: ATTEND Urology | DX: C61 Malignant neoplasm of prostate (principal) ==

== ENCOUNTER → 2020-07-25 | Outpatient (CLI) | payer MEDICARE ==
--- NOTE | 2020-07-25 08:42 | REP ---
INDICATION: AAA ANEURYSM WITHOUT RUPTURE COMPARISON: None. TECHNIQUE: Axial noncontrast images from the thoracic inlet to the upper abdomen with coronal and sagittal reformations. FINDINGS: The thoracic aorta demonstrates mild atherosclerotic changes. Ascending thoracic aorta measures 3.6 cm maximal diameter while the descending thoracic aorta measures 2.6 cm maximal diameter. Atherosclerotic changes of the coronary arteries are identified without cardiomegaly or pericardial effusion. The bilateral lung graves are well aerated and clear. No consolidation, suspicious nodule or mass lesion noted. No pleural effusion. No pneumothorax. Tracheobronchial tree is patent. No axillary, hilar, or mediastinal adenopathy noted. Musculoskeletal structures demonstrate age-related degenerative changes. IMPRESSION: Mild atherosclerotic changes to the thoracic aorta with measurements as described above. No acute mediastinal or pleuroparenchymal process appreciated. <Electronically signed by Sagar Rm > 07/25/20 [id number]
--- NOTE | 2020-07-25 09:05 | REP ---
INDICATION: AAA ANEURYSM WITHOUT RUPTURE COMPARISON: 08/17/2018 TECHNIQUE: Axial noncontrast images from the thoracic inlet to the upper abdomen with coronal and sagittal reformations. FINDINGS: Moderate to significant atherosclerotic changes of the abdominal aorta and major branch vessels noted. Focal aneurysmal dilatation of the infrarenal abdominal aorta measures roughly 3.3 cm maximal diameter an approximately 4 cm in craniocaudal length beginning greater than 4 cm from the renal arteries and terminating above the level of bifurcations common iliac arteries. No periaortic inflammatory stranding or fluid noted. Hepatic steatosis. Spleen, pancreas, gallbladder, adrenal glands and bilateral kidneys are normal. The enteric system is without obstruction or acute inflammatory process. Scattered colonic diverticula noted without acute diverticulitis. Pelvis demonstrates partially collapsed normal bladder and evidence for prior prostate surgery. No ascites. No free air. No adenopathy. Musculoskeletal structures demonstrate degenerative changes without acute osseous abnormality. IMPRESSION: 1. Focal abdominal aortic aneurysm as described above measuring 3.3 cm maximal diameter and essentially unchanged when compared with CT dated 08/17/2018. 2. Sigmoid diverticulosis without acute diverticulitis. <Electronically signed by Sagar Rm > 07/25/20 0901
== END ==
LOC: M RAD 08:03
PROVIDERS: ATTEND Physician Assistant
DX: I71.4 Abdominal aortic aneurysm, without rupture (principal); Z87.891 Personal history of nicotine dependence; I70.0 Atherosclerosis of aorta; I25.10 Atherosclerotic heart disease of native coronary artery without angina pectoris; K76.0 Fatty (change of) liver, not elsewhere classified; K57.30 Diverticulosis of large intestine without perforation or abscess without bleeding

== ENCOUNTER → 2020-11-20 | Outpatient (REF) | payer MEDICARE | LOC: M PLALAB 13:04 | PROVIDERS: ATTEND Urology | DX: C61 Malignant neoplasm of prostate (principal) ==

== ENCOUNTER → 2021-02-10 | Outpatient (REF) | payer MEDICARE | LOC: M PLALAB 13:00 | PROVIDERS: ATTEND Urology | DX: C61 Malignant neoplasm of prostate (principal) ==

== ENCOUNTER → 2021-03-18 | Outpatient (REF) | payer MEDICARE ==
[2021-03-18 14:55] LABS: BLOOD UREA NITROGEN 25 MG/DL (7-18); CALCIUM LEVEL 9.4 MG/DL (8.8-10.2); CARBON DIOXIDE LEVEL 28 MEQ/L (21-32); CHLORIDE LEVEL 108 MEQ/L (98-107); CREATININE FOR GFR 1.23 MG/DL (0.70-1.30); GLOMERULAR FILTRATION RATE > 60.0 (>42); GLUCOSE, FASTING 116 MG/DL (70-100); POTASSIUM SERUM 4.4 MEQ/L (3.5-5.1); PROSTATIC SPECIFIC AG MONITOR 7.15 NG/ML (< 4.00); SODIUM LEVEL 141 MEQ/L (136-145)
== END ==
LOC: M PLALAB 12:41
PROVIDERS: ATTEND Urology
DX: C61 Malignant neoplasm of prostate (principal); R97.21 Rising PSA following treatment for malignant neoplasm of prostate

== ENCOUNTER → 2021-03-20 | Outpatient (CLI) | payer MEDICARE ==
[~2021-03-20] MED LIST changes: -EPINEPHrine 1MG/ML INJ 30ML MD-VIAL As Ordered ONE; -EPINEPHrine INJ 1 MG/ML 1ML VIAL/AMP ONE; -GLYCOPYRROLATE INJ 0.2 MG/ML 2 ML VIAL As Ordered ONE; +ISOVUE-370 76% 100ML VIAL As Ordered ONE; -LIDOCAINE 2% INJ 100 MG/5 ML SDV (FOR ANES.) As Ordered ONE; -LR 1,000 ML IV SCH; -MIDAZOLAM INJ 2 MG/2 ML VIAL (J2250) As Ordered ONE; -MIDAZOLAM INJ 2 MG/2 ML VIAL (J2250) IV ONE; -NEOSTIGMINE 1MG/ML 5 ML SYRINGE (J2710) As Ordered ONE; -ONDANSETRON 4MG/2ML VIAL (J2405) As Ordered ONE; -ONDANSETRON 4MG/2ML VIAL (J2405) IV PRN; -PERCOCET 5MG/325MG TAB PO PRN; -PHENYLephrine HCL 500 MCG/5 ML (100MCG/ML) SYRINGE (J2370) As Ordered ONE; -PROPOFOL 200 MG/20 ML VIAL As Ordered ONE; -ROCURONIUM BROMIDE 50 MG/5 ML VIAL As Ordered ONE; -ROPIvacaine 0.5% 30 ML INJECTION (J2795) ONE; -SUCCINYLCHOLINE 100 MG/5 ML SYRINGE (J0330) As Ordered ONE; -dexameTHASONE 10 MG/1 ML VIAL PRES.FREE (J1100) ONE; -ePHEDrine SULFATE 25 MG/5 ML(5MG/ML) SYRINGE As Ordered ONE; -fentaNYL 100 MCG/2 ML INJECTION (J3010) As Ordered ONE; -fentaNYL 100 MCG/2 ML INJECTION (J3010) IV ONE; -fentaNYL 100 MCG/2 ML INJECTION (J3010) IV PRN; -fentaNYL 250 MCG/5 ML INJECTION (J3010) As Ordered ONE
--- NOTE | 2021-03-20 13:52 | REP ---
INDICATION: PROSTATE CA, RISING PSA. COMPARISON: 09/24/2020 and 08/17/2018 TECHNIQUE: Standard helical technique after the intravenous administration of 100 cc Isovue 370. No oral bowel preparatory contrast was administered prior to the exam. FINDINGS: The lung bases are unchanged from prior chest CT of 07/25/2020. The liver, gallbladder, spleen, pancreas, adrenal glands, and kidneys are essentially unchanged. There are no enhancing abnormalities. The abdominal aorta and para-aortic regions are essentially unchanged. Note is again made of a 3.3 cm sized infrarenal abdominal aortic aneurysm but better imaged on today's exam since intravenous contrast was administered. There is evidence of bilateral common iliac arterial ectasia which is mild also unchanged. There is no significant change in appearance of the bowel loops or the mesenteries. There is no evidence of a mass or adenopathy. There is no free fluid or free air. There is no significant change in appearance of the imaged osseous structures. IMPRESSION: Although the examinations are technically different there does not appear to be a significant change compared to the prior exam. There is no evidence of acute disease. There is a stable appearing infrarenal abdominal aortic aneurysm as described above. <Electronically signed by Nico Mattson > 03/20/21 [id number]
--- NOTE | 2021-03-20 14:36 | REP ---
INDICATION: PROSTATE CA, RISING PSA- CT FIRST. COMPARISON: None. TECHNIQUE/RADIOTRACER AND DOSE: After the intravenous administration of 22 mCi of technetium 99 M MDP a total body bone scan was performed. FINDINGS: There is increased activity in T5. This represents a change from the prior exam. There is subtle increased radionuclide accumulation also seen in T8. There is a subtle new focus of increased activity seen in the right 11th rib. The increased activity seen previously in the anterior left 7th rib has abated. Increased activity is again seen in the manubriosternal junction which is unchanged. There is a focus of mild increased activity seen in the right anterior 6th and 7th ribs. A subtle focus of increased activity is also seen in the right 11th rib posteriorly.. These foci represent a change. Once again, there is a degenerative type uptake pattern seen in the shoulders, wrists, and knees. Increased activity is also seen in the cervical spine which is stable and likely the consequence of degenerative changes. This is nonfocal. IMPRESSION: 1. Multifocal new abnormal increased radionuclide accumulation as described above most notably in T5 and suspicious for metastatic disease. The uptake seen in multiple ribs could be secondary to metastatic disease or focal areas of trauma. 2. Other areas of increased radionuclide accumulation, as described above, which are stable and consistent with degenerative changes. 3. MRI of the spine is recommend before and after intravenous gadolinium for further evaluation. <Electronically signed by Nico Mattson > 03/20/21 1594
== END ==
LOC: M RAD 10:06
PROVIDERS: ATTEND Urology
DX: C61 Malignant neoplasm of prostate (principal); R97.21 Rising PSA following treatment for malignant neoplasm of prostate
CPT/HCPCS: 74177; 78306; A9503; Q9967

== ENCOUNTER → 2021-05-05 | Outpatient (CLI) | payer MEDICARE ==
[~2021-05-05] MED LIST changes: -ISOVUE-370 76% 100ML VIAL As Ordered ONE; +TRIA0.022
--- NOTE | 2021-05-06 10:46 | REP ---
INDICATION: STAGING PROSTATE CANCER. COMPARISON: Comparison is made with bone scan from March 20, [address] study of the abdomen and pelvis from that same date. The bone scan was read as showing a suspicious new area in the T5 vertebral body. Subtle area of abnormality in T8 and in the right 11th rib.. TECHNIQUE: SEVENTY minutes following the intravenous injection of a 8.31 mCi dose of F-18 FDG, three-dimensional PET scintigraphy is acquired from the skull vertex to toes. Triplanar noncontrast CT scanning is acquired through the same anatomic range for attenuation correction, and image registration with scan parameters optimized to minimize radiation exposure to the patient. PET scintigraphy and CT datasets were fused and displayed on a workstation with multiplanar and projection display capability. FINDINGS: Head and neck soft tissues are unremarkable. There is no abnormal hypermetabolic uptake within the soft tissues of the chest. In the abdomen and pelvis, there is normal hepatic, splenic, gastrointestinal, and genitourinary FDG accumulation. No abnormal soft tissue uptake is seen in the abdomen and pelvis. There is multifocal abnormal skeletal hypermetabolic uptake consistent skeletal metastatic disease. There is normal variant skeletal muscle uptake in the left calf. Yasmeen trochanteric soft tissue uptake is seen also consistent with normal variant. There is however a small hypermetabolic focus in the left iliac bone, maximum SUV 4.09. There is a larger hypermetabolic focus in the right posterior iliac bone adjacent the SI joint where maximum SUV value is 21.9. This is quite hypermetabolic. A tiny focus of hypermetabolic uptake is seen in the left upper sacrum, SUV 3.16. There is another tiny focus in the right iliac bone adjacent to the sooner superior portion of the SI joint, SUV 4.29. There is an elongate focus of hypermetabolic uptake in 1 of the right posterolateral ribs where maximum standard uptake value is 18.84. A smaller focus is seen in the posterolateral rib cage on the right just superior to this, maximum SUV value 7.08. Subtle endosteal sclerosis is seen in these lesions. There is a large hypermetabolic focus in the midthoracic spine corresponding to the radionuclide uptake on bone scan. Maximum standard uptake value is 28.3. This is the T4 vertebral body and there is blastic sclerosis within this vertebral body on accompanying CT. No fracture or collapse is evident. I cannot exclude some ventral epidural extension at this level. There is a focus of increased uptake to the left of midline in the T3 vertebral body anteriorly, 3.80. IMPRESSION: There is multifocal hypermetabolic skeletal uptake in the axial skeleton consistent with hematogenous metastasis. The largest and potentially most significant lesion is in the T4 vertebral body. I cannot exclude ventral epidural extension. MRI study of the thoracic spine is recommended for further evaluation. <Electronically signed by Chip Montalvo > 05/06/21 [id number]
== END ==
LOC: M PLARAD 11:01
PROVIDERS: ATTEND Internal Medicine Medical Oncology
DX: R93.7 Abnormal findings on diagnostic imaging of other parts of musculoskeletal system (principal); C61 Malignant neoplasm of prostate
CPT/HCPCS: 78816; A9552

== ENCOUNTER → 2021-05-07 | Outpatient (CLI) | payer MEDICARE ==
--- NOTE | 2021-05-08 09:25 | RADONC ---
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 He received EBRT 79.2 Gy in 44 fractions 01/05/19-03/14/19. He received concomitant ADT for 2 years with this course. In 2020 he experienced PSA recurrence and restaging imaging demonstrated bone metastases, including an impending pathologic fracture @ T4. He is seen for consideration of RT to the T4 lesion in advance of initiation of systemic therapy. Diagnosis/Treatment History Oncologic History As above Recent data: 05/05/21 PET-CT Bone metastases such as right posterior iliac, right 5th and 6th ribs, T4 vertebral body Item Value Date Time Prostate Specific Antigen 0.85 NG/ML 04/24/20 1252 Prostate Specific Antigen 1.06 NG/ML 07/23/20 1500 Prostate Specific Antigen 2.71 NG/ML 11/20/20 1306 Prostate Specific Antigen 5.86 NG/ML H 02/10/21 1146 Prostate Specific Antigen 7.15 NG/ML H 03/18/21 1255 Interval History Jalen reports that he feels well. He has no back pain or bone pain at this time. He has no weakness or numbness in the legs or back. He bails hay, works very hard, has intact energy levels and appetite. He has no urinary complaints today. He expressed some displeasure with the circumstances of this recurrence. He has pending travel, he would also like to delay the start of systemic therapy until the Fall. Current Therapy ADT/chemo/bisphosphonate pending Stage Prostate cancer originally T2a Lindsay 4+4=8 (08/22 cores+) PSA Social History: Non smoker Does not drink Allergies / Meds Allergies: Coded Allergies: No Known Allergies (Unverified , 01/01/17) Home Meds No Active Prescriptions or Reported Meds Review of Systems Review of Systems Constitutional: Denies: Chills, Fever, Night Sweats, Fatigue, Weight Loss Eyes: Denies: Pain HEENT: Denies: Head Aches Pulmonary: Denies: Dyspnea, Cough Cardiovascular: Denies: Chest Pain, Palpitations Gastrointestinal: Denies: Abdominal Pain, Hematochezia Genitourinary: Denies: Dysuria, Frequency Hematologic: Denies: Bruising Musculoskeletal: Denies: Neck pain, Back pain, Midthoracic pain Neurological: Denies: Weakness, Numbness Psych: Reports: Mood Normal Physical Examination Vital Signs Wt 223 lbs T 96 P 46 RR 20 BP 146/92 O2 98% Pain 0 Fatigue 0 General Exam: Positive: Alert, Cooperative, No Acute Distress Eye Exam: Positive: PERRLA, EOMI ENT EXAM: Positive: Atraumatic Neck Exam: Positive: Supple Chest Exam: Positive: Clear to auscultation Heart Exam: Positive: Rate Normal Abdomen Exam: Positive: Soft; Negative: Tenderness Extremity Exam: Negative: Edema, Tenderness Skin Exam: Positive: Nl turgor and temperature Neuro Exam: Positive: Normal Gait, Normal Speech, Cranial Nerves 3-12 NL Psych Exam: Positive: Mental status NL Diagnostic and Laboratory Diagnostic Review Radiologic images, relevant labs and pathology reports were personally reviewed and discussed with Mr. Sullivan. Assessment and Plan Impression Assessment Mr. 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 He received EBRT 79.2 Gy in 44 fractions 01/05/19-03/14/19. He received concomitant ADT for 2 years with this course. In 2020 he experienced PSA recurrence and restaging imaging demonstrated bone metastases, including an impending pathologic fracture @ T4. He is seen for consideration of RT to the T4 lesion in advance of initiation of systemic therapy. He is asymptomatic from the bone lesions, however, there is impending fracture of the T4 lesion. As he has no cord compression signs or pain, I do not see an MRI of the T spine as necessary, rather I offered him palliative RT 30 Gy in 10 fractions to halt further progression at this site. I view this as especially important given his desire to delay the start of chemotherapy and ADT. He agreed to this. We discussed simulation in the next week and treatment to start shortly after to accommodate his travel plans. We reviewed that the expected toxicities of treatment are mild, he may expect some short term esophagitis due to the level of the lesion and location in the vertebral body, he may also experience some mild fatigue. These were acceptable risks to him so we will proceed. Performance Status ECOG 0 Plan Palliative RT to 30 Gy in 10 fractions to T4 Simulation in the next week Systemic therapy per Dr. Looney Mr. Sullivan was encouraged to call with questions or concerns in the interim period. Billing Statement Total time of [33] minutes was spent preparing for the visit [1], obtaining HPI [6], examining the patient [2], reviewing diagnostic tests [3], discussing management options [10], coordinating care [2], and writing this note [9]. DESIREE ALSTON MD May 08, 2021 09:25
== END ==
LOC: M ONCR 15:13
PROVIDERS: ATTEND General Practice
DX: C61 Malignant neoplasm of prostate (principal); C79.51 Secondary malignant neoplasm of bone; Z92.3 Personal history of irradiation

== ENCOUNTER → 2021-05-12 | Outpatient (CLI) | payer MEDICARE | LOC: M PLALAB 14:26 | PROVIDERS: ATTEND Urology | DX: C61 Malignant neoplasm of prostate (principal); C79.51 Secondary malignant neoplasm of bone ==

== ENCOUNTER 2021-06-03 07:36 | Outpatient (RCR) | payer MEDICARE ==
[~2021-06-03 07:36] MED LIST changes: +DEXA4TA PO; +ONDA-84 PO; +PROC10TA5 PO
[2021-06-24] MEDS ORDERED: MAGICMW SSP (13:06)
[2021-06-25] MEDS ORDERED: MAGICMW SSP (13:33)
[2021-06-26] MEDS ORDERED: MAGICMW SSP (14:44)
[2021-09-03] MEDS ORDERED: CEPH500C PO (09:01)
== END 2021-06-10 ==
LOC: M ONCR 07:36
PROVIDERS: ATTEND General Practice
DX: C79.51 Secondary malignant neoplasm of bone (principal)

== ENCOUNTER → 2021-06-23 | Outpatient (CLI) | payer MEDICARE ==
[~2021-06-23] MED LIST changes: +LIDOCAINE 1% MDV 20ML VIAL As Ordered ONE; +MAGICMW SSP; +MIDAZOLAM INJ 2MG/2ML VIAL (J2250 PER 1MG) As Ordered ONE; +NS 1,000 ML IV SCH; -ONDA-84 PO; +ONDA8TAB10 PO; +PROC10TA4 PO; -PROC10TA5 PO; +ceFAZolin 1GM VIAL (J0690 PER 500MG) As Ordered ONE; +ceFAZolin SOD 1 GM in D5W MINI-BAG PLUS 50 ML IV SCH; +ceFAZolin SOD 2 GM in IV 1 EA IV ONE; +diphenhydrAMINE 50MG/ML VIAL (J1200) As Ordered ONE; +fentaNYL 100 MCG/2 ML INJECTION (J3010) As Ordered ONE
--- NOTE | 2021-06-23 12:24 | IRHP ---
[facility] IR Pre-Procedure H & P General Date of Service: Jun 23, 2021 Procedure: Same Day Surgery Interval History and Physical I have seen the patient and reviewed last H & P performed within 30 days. There is no significant interval change. History of Present Illness Chief Complaint The patient is a 75-year-old male admitted with a reason for visit of Prostate Ca W/ Mets. PRE-PROCEDURE DIAGNOSIS: Prostate cancer HEART: Normal rate. LUNGS: Normal breathing at rest. ASA Classification ASA Classification: III-Severe systemic dis. Mallampati Score: II NPO: Yes Problems with prior sedation: No Obstructive Sleep Apnea: No Plan moderate sedation Allergies Coded Allergies: No Known Allergies (Unverified , 01/01/17) Home Medications Scheduled Dexamethasone (Dexamethasone), 8 MG PO BID Scheduled PRN Ondansetron HCl (Ondansetron HCl), 8 MG PO Q6H PRN for NAUSEA OR VOMITING Prochlorperazine Maleate (Prochlorperazine Maleate), 10 MG PO Q6H PRN for NAUSEA OR VOMITING JOSE DANIEL CRUM MD Jun 23, 2021 12:24
--- NOTE | 2021-06-23 13:37 | IRPON ---
IR Postoperative Note Date Of Procedure: Jun 23, 2021 Time Of Procedure: 13:36 IR Postoperative Note IR Ultrasound and fluoroscopy guided port placement IR Ultrasound of the neck. IR Moderate sedation. Clinical indication: Prostate cancer. Physician: Dr. Gifford. Procedure: The patient was advised of the benefits, risks, and alternatives of the procedure and informed consent was obtained. A time-out was performed with verification of the patient's name, MRN, site of procedure and type of procedure to be performed. The patient was positioned in the supine position on the angiographic table. The site was prepped and draped in the usual sterile fashion. Moderate sedation was performed by the physician including the presence of an independent trained RN who assisted and monitored the patient's level of consciousness and physiologic status. Following the administration of fentanyl and Versed , the physician spent 45 minutes of continuous face to face time with the patient. Ultrasound of the neck reveals a patent and compressible right internal jugular vein. A scaffolder radiograph reveals no gross abnormality. The neck and anterior chest wall were anesthetized with lidocaine. The right internal jugular vein was accessed using a microintroducer needle under ultrasound guidance, via a lateral approach. An 018 wire was advanced into the superior vena cava, the needle was removed and a microsheath was placed. An Amplatz wire was then passed into the inferior vena cava. An incision at the internal jugular vein access site and anterior chest wall were made using a scalpel. An incision was made at the anterior chest wall. A small pocket was created using a combination of blunt and sharp dissection. A tunneling device was then used to pass the catheter from the pocket to the neck puncture site. An 8- [employer] Angio [employer] Smart power port was then positioned in the pocket. The catheter was then measured and cut. The introducer sheath was exchanged for a peel-away sheath. The catheter was passed through the peel-away sheath into the internal jugular vein and the peel-away sheath was removed. The port tip was positioned at the cavoatrial junction. The port was then accessed with a Giordano needle. The port flushes and aspirates well. The puncture site in the neck was closed. The chest wall incision was then closed with 2-0 Vicryl and 4-0 Monocryl. Glue and Steri- Strips were applied. A sterile dressing was then applied. The patient tolerated the procedure well and was returned to the PRU in stable condition. Estimated blood loss: <5 ml. Complications: None. Conclusion: 1. Successful placement of an 8-[place]ese Angio dynamics Smart power port via the right internal jugular vein. The port is ready for immediate use. 2. Patient to follow up in IR clinic in 2 weeks. Thank you for this referral. JOSE DANIEL GIFFORD MD Jun 23, 2021 13:37
[2021-06-23 15:30] VITALS: BP 111/76
== END ==
LOC: M IRPRO 11:26
PROVIDERS: ATTEND Specialist
DX: C61 Malignant neoplasm of prostate (principal)
CPT/HCPCS: 36561; 99152; 99153; C1769; C1788; C1894; J0690; J1200; J1642; J1644; J2250; J3010

== ENCOUNTER → 2021-07-08 | Outpatient (POV) | payer MEDICARE ==
[~2021-07-08] VITALS: Ht 175.3 cm; Wt 100.0 kg
[~2021-07-08] MED LIST changes: -LIDOCAINE 1% MDV 20ML VIAL As Ordered ONE; -MIDAZOLAM INJ 2MG/2ML VIAL (J2250 PER 1MG) As Ordered ONE; -NS 1,000 ML IV SCH; -ceFAZolin 1GM VIAL (J0690 PER 500MG) As Ordered ONE; -ceFAZolin SOD 1 GM in D5W MINI-BAG PLUS 50 ML IV SCH; -ceFAZolin SOD 2 GM in IV 1 EA IV ONE; -diphenhydrAMINE 50MG/ML VIAL (J1200) As Ordered ONE; -fentaNYL 100 MCG/2 ML INJECTION (J3010) As Ordered ONE
[2021-07-08 09:15] VITALS: BP 161/89
--- NOTE | 2021-07-10 10:11 | IRPN ---
[facility] IR Progress Note IR Progress Note DATE: Jul 08, 2021 FOLLOW-UP: Patient is status post port placement. He states he is doing well. No fevers, chills or pain at site. ON EXAMINATION: Port site appears to be healing well. Glue and Steri-Strips still in place. No redness, fluctuance or discharge at site. IMPRESSION: Doing well status post port placement. No further follow-up sche duled unless initiated by patient and/or referring provider. Thank you for this referral Allergies Coded Allergies: No Known Allergies (Unverified , 01/01/17) VS,Fishbone, I+O VS, Fishbone, I+O Vital Signs Date Time Temp Pulse Resp B/P (MAP) Pulse Ox O2 Delivery O2 Flow Rate FiO2 07/08/21 09:15 96.6 78 20 161/89 (113) 99 Room Air JOSE DANIEL CRUM MD Jul 10, 2021 10:11
== END ==
LOC: M IRPOV 09:11
PROVIDERS: ATTEND Radiology Diagnostic Radiology
DX: Z45.2 Encounter for adjustment and management of vascular access device (principal)

== ENCOUNTER → 2021-08-26 | Outpatient (CLI) | payer MEDICARE ==
--- NOTE | 2021-08-26 14:01 | RADONC ---
Radiation Oncology Hx/FUP Radiation Oncology Hx/FUP Date of Service: Aug 26, 2021 Pt Identifier Jalen Sullivan Jr is a 76 year old male seen for a followup visit today at the department of radiation oncology for a history of metastatic castrate naive prostate cancer. He received EBRT 79.2 Gy in 44 fractions 01/05/19-03/14/19. He received concomitant ADT for 2 years with this course. In 2020 he experienced PSA recurrence and restaging imaging demonstrated bone metastases, including an impending pathologic fracture @ T4. He received 30 Gy in 10 fractions to T4 completed 05/21/21-06/03/21. He is currently receiving ADT monthly with Dr Wallace and docetaxel with plan to complete 6 cycles in September 2021. Diagnosis/Treatment History Oncologic History As above Recent data: 05/05/21 PET-CT Bone metastases such as right posterior iliac, right 5th and 6th ribs, T4 vertebral body Item Value Date Time Prostate Specific Antigen 0.85 NG/ML 04/24/20 1252 Prostate Specific Antigen 1.06 NG/ML 07/23/20 1500 Prostate Specific Antigen 2.71 NG/ML 11/20/20 1306 Prostate Specific Antigen 5.86 NG/ML H 02/10/21 1146 Prostate Specific Antigen 7.15 NG/ML H 03/18/21 1255 Prostate Specific Antigen 0.87 NG/ML 01/17/20 0940 Prostate Specific Antigen 10.50 NG/ML H 05/12/21 1508 Prostate Specific Antigen 8.42 NG/ML H 06/12/21 1154 Prostate Specific Antigen Screen 5.97 NG/ML H 07/24/21 0954 Prostate Specific Antigen 3.53 NG/ML 08/14/21 0844 Interval History Ed reports he is tolerating chemotherapy well. He has some hyperesthesia in the fingers to temperature, no constant tingling. He had some mucositis which has resolved with subsequent cycles. Overall he has relatively intact energy appetite and positive outlook. No bone pain to speak of. Had a good end to the haying season. Current Therapy Docetaxel/Lupron Stage Prostate cancer originally T2a [place] 4+4=8 (08/22 cores+) PSA Social History: Non smoker Does not drink Allergies / Meds Allergies: Coded Allergies: No Known Allergies (Unverified , 01/01/17) Home Meds Active Scripts Magic Mouthwash (First-Mouthwash Blm) 1 Ea Susp, 10 ML SSP QID PRN for MUCOSITIS, #240 ML 5 Refills (Diphenhydramine/maalox/lidocaine 1:1:1) May compound if kit unavailable/not covered by insurance Prov:TRUONG LOONEY MD 06/26/21 Dexamethasone (Dexamethasone) 4 Mg Tablet, 8 MG PO BID, #50 TAB 1 Refill take 2 tabs by mouth twice a day the day before chemo Prov:TRUONG LOONEY MD 05/19/21 Prochlorperazine Maleate (Prochlorperazine Maleate) 10 Mg Tablet, 10 MG PO Q6H PRN for NAUSEA OR VOMITING, #30 TAB 3 Refills Prov:TRUONG LOONEY MD 05/19/21 Ondansetron HCl (Ondansetron HCl) 8 Mg Tablet, 8 MG PO Q6H PRN for NAUSEA OR VOMITING, #30 TAB 3 Refills Prov:TRUONG LOONEY MD 05/19/21 Review of Systems Review of Systems Constitutional: Denies: Fever, Weakness, Fatigue Eyes: Denies: Pain HEENT: Denies: Head Aches Pulmonary: Denies: Dyspnea Cardiovascular: Denies: Chest Pain Musculoskeletal: Denies: Neck pain, Back pain Neurological: Reports: Numbness; Denies: Weakness Psych: Reports: Mood Normal Physical Examination Vital Signs Ht 68" Wt 224 lbs BMI 34 P 85 RR 18 BP 129/71 O2 98% Pain 0 Fatigue 2 General Exam: Alert, Cooperative, No Acute Distress Eye Exam: PERRLA EOMI ENT EXAM: Atraumatic Neck Exam: Supple Skin Exam: Nl turgor and temperature Neuro Exam: Normal Gait, Normal Speech, Cranial Nerves 3-12 NL Psych Exam: Mental status NL Diagnostic and Laboratory Diagnostic Review Radiologic images, relevant labs and pathology reports were personally reviewed and discussed with Mr. Sullivan. Assessment and Plan Impression Assessment Mr. Sullivan is a 76 year old male with a history of metastatic castrate naive prostate cancer. He received EBRT 79.2 Gy in 44 fractions 01/05/19-03/14/19. He received concomitant ADT for 2 years with this course. In 2020 he experienced PSA recurrence and restaging imaging demonstrated bone metastases, including an impending pathologic fracture @ T4. He received 30 Gy in 10 fractions to T4 completed 05/21/21-06/03/21. He is currently receiving ADT monthly with Dr Wallace and docetaxel with plan to complete 6 cycles in September 2021. I am pleased with his PSA response and relative good tolerance of docetaxel. He has no complaints related to RT and no additional sites of concern today. I reviewed briefly the indications for EBRT (pain, impending fracture etc.), and Xofigo, which was broached by Dr. 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 We discussed a 6 month follow up visit. He agreed to this. Performance Status ECOG 1 Plan Follow up in 6 months Mr. Sullivan was encouraged to call with questions or concerns in the interim period. Billing Statement Total time of [22] minutes was spent preparing for the visit [1], obtaining HPI [4], examining the patient [1], reviewing diagnostic tests [3], discussing management options [5], coordinating care [2], and writing this note [6]. DESIREE ALSTON MD Aug 26, 2021 14:01
== END ==
LOC: M ONCR 12:34
PROVIDERS: ATTEND General Practice
DX: C79.51 Secondary malignant neoplasm of bone (principal); C61 Malignant neoplasm of prostate; Z92.3 Personal history of irradiation; Z92.21 Personal history of antineoplastic chemotherapy; Z79.899 Other long term (current) drug therapy

== ENCOUNTER → 2021-09-09 | Outpatient (POV) | payer MEDICARE ==
[~2021-09-09] VITALS: Ht 172.7 cm; Wt 97.2 kg
[~2021-09-09] MED LIST changes: +CEPH500C PO; +ONDA-84 PO; -ONDA8TAB10 PO; -PROC10TA4 PO; +PROC10TA5 PO
[2021-09-09 13:35] VITALS: BP 170/94
== END ==
LOC: M IRPOV 13:29
PROVIDERS: ATTEND Radiology Diagnostic Radiology
DX: Z45.2 Encounter for adjustment and management of vascular access device (principal)

== ENCOUNTER → 2021-09-30 | Outpatient (CLI) | payer MEDICARE ==
[~2021-09-30] MED LIST changes: -ONDA-84 PO; +ONDA8TAB10 PO; +PROC10TA4 PO; -PROC10TA5 PO
--- NOTE | 2021-09-30 17:21 | DEXAMM ---
INDICATION: SECONDARY MALIGNANT NEOPLASM OF BONE. COMPARISON: None. TECHNIQUE: Bone density was measured using dual-energy x-ray absorptiometry (DEXA). FINDINGS: AP SPINE L1-L4 BMD 1.310 g/cm2 Young Adult T-Score 0.9 Age Matched Z-Score 1.2. LT FEMUR, TOTAL BMD 0.735 g/cm2 Young Adult T-Score -2.2 Age Matched Z-Score -1.6. LT NECK BMD 0.780 g/cm2 Young Adult T-Score -1.9 Age Matched Z-Score -0.8. RT FEMUR, TOTAL BMD 0.682 g/cm2 Young Adult T-Score -2.6 Age Matched Z-Score -1.9. RT NECK BMD 0.735 g/cm2 Young Adult T-Score -2.2 Age Matched Z-Score -1.1. IMPRESSION: There is normal bone density of the spine. There is low bone density of the left hip. There is osteoporosis of the right hip. FOLLOW-UP: Recommendation for the next bone density exam: One year. <Electronically signed by Remington Bush > 09/30/21 [id number]
== END ==
LOC: M WHC 13:18
PROVIDERS: ATTEND General Practice
DX: C79.51 Secondary malignant neoplasm of bone (principal); M81.0 Age-related osteoporosis without current pathological fracture

== ENCOUNTER → 2021-10-08 | Outpatient (CLI) | payer MEDICARE ==
--- NOTE | 2021-10-08 14:22 | RADONC ---
Radiation Oncology Hx/FUP Radiation Oncology Hx/FUP Date of Service: Oct 08, 2021 Pt Identifier Jalen Sullivan is a 76 year old male seen for a followup visit today at the department of radiation oncology for a history of metastatic castrate naive prostate cancer. He received EBRT 79.2 Gy in 44 fractions 01/05/19-03/14/19. He received concomitant ADT for 2 years with this course. In 2020 he experienced PSA recurrence and restaging imaging demonstrated bone metastases, including an impending pathologic fracture @ T4. He received 30 Gy in 10 fractions to T4 completed 05/21/21-06/03/21. He is currently receiving ADT monthly with Dr Wallace. He received 6 cycles of docetaxel (per the [facility] paradigm) completed in September 2021. Diagnosis/Treatment History Oncologic History Recent data: 05/05/21 PET-CT Bone metastases such as right posterior iliac, right 5th and 6th ribs, T4 vertebral body Item Value Date Time Prostate Specific Antigen 1.06 NG/ML 07/23/20 1500 Prostate Specific Antigen 2.71 NG/ML 11/20/20 1306 Prostate Specific Antigen 5.86 NG/ML H 02/10/21 1146 Prostate Specific Antigen 7.15 NG/ML H 03/18/21 1255 Prostate Specific Antigen 10.50 NG/ML H 05/12/21 1508 Prostate Specific Antigen 8.42 NG/ML H 06/12/21 1154 Prostate Specific Antigen 3.53 NG/ML 08/14/21 0844 Prostate Specific Antigen 1.53 NG/ML 09/25/21 0736 09/30/21 DEXA FINDINGS: AP SPINE L1-L4 BMD 1.310 g/cm2 Young Adult T-Score 0.9 Age Matched Z-Score 1.2. LT FEMUR, TOTAL BMD 0.735 g/cm2 Young Adult T-Score -2.2 Age Matched Z-Score -1.6. LT NECK BMD 0.780 g/cm2 Young Adult T-Score -1.9 Age Matched Z-Score -0.8. RT FEMUR, TOTAL BMD 0.682 g/cm2 Young Adult T-Score -2.6 Age Matched Z-Score -1.9. RT NECK BMD 0.735 g/cm2 Young Adult T-Score -2.2 Age Matched Z-Score -1.1. IMPRESSION: There is normal bone density of the spine. There is low bone density of the left hip. There is osteoporosis of the right hip. Interval History Ed reports he has persistent fatigue s/p chemotherapy. He is planning to resume light exercise in effort to mitigate this. He is concerned about his bone health and asked about calcium supplementation and alternatives to Xgeva. He also expressed a desire to continue to receive ADT injections from Dr. Wallace's office and to switch medical oncology providers. Having hot flashes from ADT. Current Therapy ADT per Dr. Rodrigo Her, pending S/p Docetaxel x 6 cycles Stage Prostate cancer originally T2a [place] 4+4=8 (08/22 cores+) now M1b stage IVB Social History: Non smoker Does not drink Allergies / Meds Allergies: Coded Allergies: No Known Allergies (Unverified , 01/01/17) Home Meds Active Scripts Magic Mouthwash (First-Mouthwash Blm) 1 Ea Susp, 10 ML SSP QID PRN for MUCOSITIS, #240 ML 5 Refills (Diphenhydramine/maalox/lidocaine 1:1:1) May compound if kit unavailable/not covered by insurance Prov:TRUONG OSULLIVAN MD 06/26/21 Discontinued Scripts Dexamethasone (Dexamethasone) 4 Mg Tablet, 8 MG PO BID, #50 TAB 1 Refill take 2 tabs by mouth twice a day the day before chemo Prov:TRUONG OSULLIVAN MD 05/19/21 Prochlorperazine Maleate (Prochlorperazine Maleate) 10 Mg Tablet, 10 MG PO Q6H PRN for NAUSEA OR VOMITING, #30 TAB 3 Refills Prov:TRUONG OSULLIVAN MD 05/19/21 Ondansetron HCl (Ondansetron HCl) 8 Mg Tablet, 8 MG PO Q6H PRN for NAUSEA OR VOMITING, #30 TAB 3 Refills Prov:TRUONG OSULLIVAN MD 05/19/21 Review of Systems Review of Systems Constitutional: Reports: Night Sweats, Fatigue; Denies: Weight Loss Musculoskeletal: Denies: Neck pain, Back pain Psych: Reports: Mood Normal Physical Examination Vital Signs Ht 68" Wt 220 lbs BMI 33.6 T 96.8 P 57 RR 18 BP 102/64 O2 100% Pain 0 Fatigue 5 General Exam: Alert, Cooperative, No Acute Distress Eye Exam: YEE PERALTA ENT EXAM: Atraumatic, Other ENT (Alopecia) Abdomen Exam: Soft Extremity Exam: Negative: Edema Skin Exam: Nl turgor and temperature, Other skin issue (Note dark lines in fingernails from afar, no clubbing) Neuro Exam: Normal Gait, Normal Speech, Cranial Nerves 3-12 NL Psych Exam: Mental status NL Diagnostic and Laboratory Diagnostic Review Radiologic images, relevant labs and pathology reports were personally reviewed and discussed with Mr. Sullivan. Assessment and Plan Impression Assessment Mr. Sullivan is a 76 year old male with a history of metastatic castrate naive prostate cancer. He received EBRT 79.2 Gy in 44 fractions 01/05/19-03/14/19. He received concomitant ADT for 2 years with this course. In 2020 he experienced PSA recurrence and restaging imaging demonstrated bone metastases, including an impending pathologic fracture @ T4. He received 30 Gy in 10 fractions to T4 completed 05/21/21-06/03/21. He is currently receiving ADT monthly with Dr Wallace. He received 6 cycles of docetaxel (per the [facility] paradigm) completed in September 2021. He has persistent fatigue from docetaxel, which I explained is usual, and related to suppressed bone marrow. His plan to exercise is known to mitigate the fatigue associated with chemotherapy, and I support this plan. We discussed his DEXA scan which shows normal BD in the spine, but osteopenia in the left hip and osteoporosis in the right. For this Xgeva is a good option as it has a known benefit in mitigating the risk of skeletal related events (SRE) in both metastatic prostate cancer as well as benign osteoporosis (NB Prolia, which is the same monoclonal antibody rebranded). Xgeva is also superior to bisphosphonates which I also discussed as an alternative. In the meantime, I support him starting a calcium and vitamin D supplement. He said he would do this. For medical oncology follow up, he desires a provider change, which I will help facilitate. He wishes to keep his ADT in place at Dr. Wallace's office, I agree with this decision. I will see him again in 3 months time to assist in coordination of his care. Performance Status ECOG 1 Plan Start calcium vitamin D Will facilitate provider change as discussed above ADT per Dr. Wallace Follow up in 3 months time Mr. Sullivan was encouraged to call with questions or concerns in the interim period. Billing Statement Total time of [25] minutes was spent preparing for the visit [1], obtaining HPI [5], examining the patient [1], reviewing diagnostic tests [4], discussing management options [5], coordinating care [2], and writing this note [7]. DESIREE ALSTON MD Oct 08, 2021 14:20
== END ==
LOC: M ONCR 11:09
PROVIDERS: ATTEND General Practice
DX: C61 Malignant neoplasm of prostate (principal); C79.51 Secondary malignant neoplasm of bone; Z92.3 Personal history of irradiation; Z92.21 Personal history of antineoplastic chemotherapy; Z79.899 Other long term (current) drug therapy

== ENCOUNTER → 2021-12-09 | Outpatient (POV) | payer MEDICARE ==
[~2021-12-09] MED LIST changes: +ONDA-84 PO; -ONDA8TAB10 PO; -PROC10TA4 PO; +PROC10TA5 PO
== END ==
LOC: M IRPOV 11:12
PROVIDERS: ATTEND Radiology Diagnostic Radiology
DX: Z45.2 Encounter for adjustment and management of vascular access device (principal); C61 Malignant neoplasm of prostate; Z92.21 Personal history of antineoplastic chemotherapy; Z92.3 Personal history of irradiation

== ENCOUNTER → 2021-12-11 | Outpatient (CLI) | payer MEDICARE | LOC: M PLALAB 14:17 | PROVIDERS: ATTEND Urology | DX: C61 Malignant neoplasm of prostate (principal) ==

== ENCOUNTER → 2022-01-07 | Outpatient (CLI) | payer MEDICARE | LOC: M ONCR 09:57 | PROVIDERS: ATTEND General Practice | DX: C61 Malignant neoplasm of prostate (principal) ==

== ENCOUNTER → 2022-01-13 | Outpatient (POV) | payer MEDICARE ==
[~2022-01-13] VITALS: Ht 172.7 cm; Wt 97.7 kg
[2022-01-13 14:40] VITALS: BP 155/81
== END ==
LOC: M IRPOV 14:24
PROVIDERS: ATTEND Radiology Diagnostic Radiology
DX: Z45.2 Encounter for adjustment and management of vascular access device (principal)

== ENCOUNTER → 2022-01-26 | Outpatient (CLI) | payer MEDICARE ==
[~2022-01-26] MED LIST changes: +LIDOCAINE 1% MDV 20ML VIAL As Ordered ONE; +MIDAZOLAM INJ 2MG/2ML VIAL (J2250 PER 1MG) As Ordered ONE; +NS 1,000 ML IV SCH; +PROMETHAZINE 25MG/ML 1ML VIAL As Ordered ONE; +ceFAZolin 2 GM/D5W 50 ML IV BAG (J0690 PER 500MG) As Ordered ONE; +ceFAZolin SOD 2 GM in IV 1 EA IV ONE; +diphenhydrAMINE 50MG/ML VIAL (J1200) As Ordered ONE; +fentaNYL 100 MCG/2 ML INJECTION As Ordered ONE
[2022-01-26 17:10] VITALS: BP 130/72
== END ==
LOC: M IRPRO 12:45
PROVIDERS: ATTEND Radiology Diagnostic Radiology
DX: Z45.2 Encounter for adjustment and management of vascular access device (principal); C61 Malignant neoplasm of prostate
CPT/HCPCS: 36590; 99152; 99153; J0690; J1200; J1644; J2250; J2550; J3010

== ENCOUNTER → 2022-02-05 | Outpatient (CLI) | payer MEDICARE ==
[~2022-02-05] MED LIST changes: -LIDOCAINE 1% MDV 20ML VIAL As Ordered ONE; -MIDAZOLAM INJ 2MG/2ML VIAL (J2250 PER 1MG) As Ordered ONE; -NS 1,000 ML IV SCH; -PROMETHAZINE 25MG/ML 1ML VIAL As Ordered ONE; -ceFAZolin 2 GM/D5W 50 ML IV BAG (J0690 PER 500MG) As Ordered ONE; -ceFAZolin SOD 2 GM in IV 1 EA IV ONE; -diphenhydrAMINE 50MG/ML VIAL (J1200) As Ordered ONE; -fentaNYL 100 MCG/2 ML INJECTION As Ordered ONE
[2022-02-05 13:28] LABS: PROSTATIC SPECIFIC AG MONITOR 1.27 NG/ML (< 4.00)
== END ==
LOC: M PLALAB 10:16
PROVIDERS: ATTEND General Practice
DX: C61 Malignant neoplasm of prostate (principal)

== ENCOUNTER → 2022-02-11 | Outpatient (CLI) | payer MEDICARE | LOC: M ONCR 09:08 | PROVIDERS: ATTEND General Practice | DX: C79.51 Secondary malignant neoplasm of bone (principal); Z92.3 Personal history of irradiation ==

== ENCOUNTER → 2022-03-26 | Outpatient (CLI) | payer MEDICARE | LOC: M PLALAB 15:23 | PROVIDERS: ATTEND General Practice | DX: C61 Malignant neoplasm of prostate (principal) ==

== ENCOUNTER → 2022-05-12 | Outpatient (CLI) | payer MEDICARE | LOC: M PLALAB 13:40 | PROVIDERS: ATTEND Urology | DX: C61 Malignant neoplasm of prostate (principal) ==

== ENCOUNTER → 2022-05-13 | Outpatient (CLI) | payer MEDICARE | LOC: M ONCR 10:05 | PROVIDERS: ATTEND General Practice | DX: C61 Malignant neoplasm of prostate (principal); C79.51 Secondary malignant neoplasm of bone; R97.21 Rising PSA following treatment for malignant neoplasm of prostate; Z79.818 Long term (current) use of other agents affecting estrogen receptors and estrogen levels; Z92.21 Personal history of antineoplastic chemotherapy; Z92.3 Personal history of irradiation ==

== ENCOUNTER → 2022-06-12 | Outpatient (CLI) | payer MEDICARE ==
[2022-06-12 14:36] LABS: BASO % 0.5 % (0.0-1.0); EOS # 0.2 10^3/uL (0.0-0.5); EOS % 3.7 % (0.0-3.0); HEMATOCRIT 40.2 % (42.0-52.0); HEMOGLOBIN 12.8 g/dl (13.5-17.5); LYMPH % 23.6 % (24.0-44.0); MEAN CORPUSCULAR HEMOGLOBIN 28.3 pg (27.0-33.0); MEAN CORPUSCULAR HGB CONC 31.8 g/dl (32.0-36.5); MEAN CORPUSCULAR VOLUME 88.9 fl (80.0-96.0); MONO # 0.4 10^3/uL (0.0-0.8); MONO % 9.6 % (2.0-8.0); NEUTROPHILS # 2.5 10^3/uL (1.5-8.5); NEUTROPHILS % 62.1 % (36.0-66.0); PLATELET COUNT, AUTOMATED 130 10^3/uL (150-450); RED BLOOD COUNT 4.52 10^6/uL (4.30-6.10); WHITE BLOOD COUNT 4.1 10^3/uL (4.0-10.0)
[2022-06-12 15:19] LABS: ALBUMIN 3.9 GM/DL (3.2-5.2); ALT/SGPT 28 U/L (12-78); BILIRUBIN,TOTAL 0.4 MG/DL (0.2-1.0); BLOOD UREA NITROGEN 20 MG/DL (7-18); CARBON DIOXIDE LEVEL 24 MEQ/L (21-32); CHLORIDE LEVEL 105 MEQ/L (98-107); CHOLESTEROL LEVEL 206 MG/DL (<200); CHOLESTEROL RISK RATIO 4.204 (<5); CREATININE FOR GFR 1.14 MG/DL (0.70-1.30); GLOMERULAR FILTRATION RATE > 60.0 (>42); GLUCOSE, FASTING 82 MG/DL (70-100); HDL CHOLESTEROL 49 MG/DL (>40); LDL CHOLESTEROL 139 MG/DL (<100); NON-HDL-C 157 MG/DL; POTASSIUM SERUM 4.6 MEQ/L (3.5-5.1); SODIUM LEVEL 136 MEQ/L (136-145); TOTAL PROTEIN 6.8 GM/DL (6.4-8.2); TRIGLYCERIDES LEVEL 90 MG/DL (<150)
[2022-06-12 15:30] LABS: HEMOGLOBIN A1c 5.3 %
[2022-06-12 15:57] LABS: TOTAL 25(OH) VITAMIN D 31.9 NG/ML (30.0-100.0)
== END ==
LOC: M PLALAB 09:24
PROVIDERS: ATTEND Physician Assistant
DX: E78.2 Mixed hyperlipidemia (principal); R73.09 Other abnormal glucose

== ENCOUNTER → 2022-09-17 | Outpatient (CLI) | payer MEDICARE ==
[~2022-09-17] MED LIST changes: +PRED5TA PO; +ZYTI250T PO
== END ==
LOC: M ONCR 10:06
PROVIDERS: ATTEND General Practice
DX: C61 Malignant neoplasm of prostate (principal); C79.51 Secondary malignant neoplasm of bone; Z79.52 Long term (current) use of systemic steroids; Z79.818 Long term (current) use of other agents affecting estrogen receptors and estrogen levels; Z79.899 Other long term (current) drug therapy; Z92.3 Personal history of irradiation

== ENCOUNTER → 2022-10-01 | Outpatient (CLI) | payer MEDICARE | LOC: M PLALAB 12:06 | PROVIDERS: ATTEND Urology | DX: C61 Malignant neoplasm of prostate (principal) ==

== ENCOUNTER → 2022-11-20 | Outpatient (CLI) | payer MEDICARE ==
[2022-11-20 11:11] LABS: PROSTATIC SPECIFIC AG MONITOR 8.99 NG/ML (< 4.00)
[2022-11-20 11:13] LABS: ALBUMIN 4.3 G/DL (3.2-5.2); ALKALINE PHOSPHATASE 106 U/L (46-116); ALT/SGPT 27 U/L (7.0-40); AST/SGOT < 8 U/L (<34); BILIRUBIN,TOTAL 0.4 MG/DL (0.3-1.2); BLOOD UREA NITROGEN 25 MG/DL (9-23); CALCIUM LEVEL 9.6 MG/DL (8.3-10.6); CARBON DIOXIDE LEVEL 26 MMOL/L (20-31); CHLORIDE LEVEL 105 MMOL/L (98-107); CREATININE FOR GFR 1.06 MG/DL (0.70-1.30); GLOMERULAR FILTRATION RATE > 60.0 (>42); GLUCOSE, FASTING 91 MG/DL (74-106); POTASSIUM SERUM 4.2 MMOL/L (3.5-5.1); SODIUM LEVEL 138 MMOL/L (136-145); TOTAL PROTEIN 6.9 G/DL (5.7-8.2)
[2022-11-20 11:32] LABS: TESTOSTERONE < 7 NG/DL (241-827)
== END ==
LOC: M ONCR 08:59
PROVIDERS: ATTEND General Practice
DX: C61 Malignant neoplasm of prostate (principal)
CPT/HCPCS: 36415; 80053; 84153; 84403; G0463

== ENCOUNTER → 2022-12-10 | Outpatient (CLI) | payer MEDICARE ==
[2022-12-10 10:40] LABS: ALBUMIN 3.8 G/DL (3.2-5.2); ALKALINE PHOSPHATASE 99 U/L (46-116); ALT/SGPT 52 U/L (7.0-40); AST/SGOT 86 U/L (<34); BILIRUBIN,TOTAL 0.8 MG/DL (0.3-1.2); BLOOD UREA NITROGEN 23 MG/DL (9-23); CALCIUM LEVEL 9.6 MG/DL (8.3-10.6); CARBON DIOXIDE LEVEL 28 MMOL/L (20-31); CHLORIDE LEVEL 103 MMOL/L (98-107); CREATININE FOR GFR 0.95 MG/DL (0.70-1.30); GLOMERULAR FILTRATION RATE > 60.0 (>42); GLUCOSE, FASTING 116 MG/DL (74-106); POTASSIUM SERUM 4.4 MMOL/L (3.5-5.1); PROSTATIC SPECIFIC AG MONITOR 11.26 NG/ML (< 4.00); SODIUM LEVEL 139 MMOL/L (136-145); TOTAL PROTEIN 6.6 G/DL (5.7-8.2)
== END ==
LOC: M ONCR 08:53
PROVIDERS: ATTEND General Practice
DX: C61 Malignant neoplasm of prostate (principal); C79.51 Secondary malignant neoplasm of bone; R97.21 Rising PSA following treatment for malignant neoplasm of prostate; Z79.52 Long term (current) use of systemic steroids; Z79.818 Long term (current) use of other agents affecting estrogen receptors and estrogen levels; Z92.29 Personal history of other drug therapy; Z92.3 Personal history of irradiation
CPT/HCPCS: 36415; 80053; 84153; G0463

== ENCOUNTER → 2023-03-15 | Outpatient (CLI) | payer MEDICARE | LOC: M PLALAB 13:45 | PROVIDERS: ATTEND Urology | DX: C61 Malignant neoplasm of prostate (principal) ==

== ENCOUNTER → 2023-03-24 | Outpatient (CLI) | payer MEDICARE | LOC: M ONCR 08:31 | PROVIDERS: ATTEND General Practice | DX: C61 Malignant neoplasm of prostate (principal); R97.21 Rising PSA following treatment for malignant neoplasm of prostate; Z71.2 Person consulting for explanation of examination or test findings; Z79.52 Long term (current) use of systemic steroids; Z79.899 Other long term (current) drug therapy; Z92.21 Personal history of antineoplastic chemotherapy; Z92.29 Personal history of other drug therapy; Z92.3 Personal history of irradiation ==

== ENCOUNTER → 2023-05-25 | Outpatient (CLI) | payer MEDICARE ==
[2023-05-25 15:56] LABS: BASO % 0.7 % (0.0-1.0); EOS # 0.1 10^3/uL (0.0-0.5); EOS % 1.7 % (0.0-3.0); HEMATOCRIT 38.9 % (42.0-52.0); HEMOGLOBIN 12.7 g/dl (13.5-17.5); LYMPH # 1.5 10^3/uL (1.5-5.0); LYMPH % 24.9 % (24.0-44.0); MEAN CORPUSCULAR HEMOGLOBIN 28.8 pg (27.0-33.0); MEAN CORPUSCULAR HGB CONC 32.6 g/dl (32.0-36.5); MEAN CORPUSCULAR VOLUME 88.2 fl (80.0-96.0); MONO # 0.5 10^3/uL (0.0-0.8); MONO % 9.3 % (2.0-8.0); NEUTROPHILS # 3.7 10^3/uL (1.5-8.5); NEUTROPHILS % 62.7 % (36.0-66.0); PLATELET COUNT, AUTOMATED 140 10^3/uL (150-450); RED BLOOD COUNT 4.41 10^6/uL (4.30-6.10); WHITE BLOOD COUNT 5.8 10^3/uL (4.0-10.0)
[2023-05-25 16:24] LABS: ALBUMIN 3.7 G/DL (3.2-5.2); ALKALINE PHOSPHATASE 114 U/L (46-116); ALT/SGPT 27 U/L (7.0-40); AST/SGOT 21 U/L (<34); BILIRUBIN,TOTAL 0.4 MG/DL (0.3-1.2); BLOOD UREA NITROGEN 26 MG/DL (9-23); CALCIUM LEVEL 9.9 MG/DL (8.3-10.6); CARBON DIOXIDE LEVEL 26 MMOL/L (20-31); CHLORIDE LEVEL 106 MMOL/L (98-107); CHOLESTEROL LEVEL 197 MG/DL (<200); CHOLESTEROL RISK RATIO 3.55 (<5); CREATININE FOR GFR 0.87 MG/DL (0.70-1.30); GLOMERULAR FILTRATION RATE > 60.0 (>42); GLUCOSE, FASTING 84 MG/DL (74-106); HDL CHOLESTEROL 55.4 MG/DL (>40); LDL CHOLESTEROL 112.8 MG/DL (<100); NON-HDL-C 141.6 MG/DL; SODIUM LEVEL 138 MMOL/L (136-145); TOTAL PROTEIN 6.6 G/DL (5.7-8.2); TRIGLYCERIDES LEVEL 144 MG/DL (<150)
[2023-05-25 16:29] LABS: HEMOGLOBIN A1c 5.1 % (4.0-6.0)
== END ==
LOC: M PLALAB 12:49
PROVIDERS: ATTEND Physician Assistant
DX: E78.2 Mixed hyperlipidemia (principal)

== ENCOUNTER → 2023-06-04 | Outpatient (CLI) | payer MEDICARE | LOC: M PLALAB 13:19 | PROVIDERS: ATTEND Urology | DX: C61 Malignant neoplasm of prostate (principal) ==

== ENCOUNTER → 2023-06-08 | Outpatient (CLI) | payer MEDICARE ==
[~2023-06-08] MED LIST changes: +ALEN70TA82 PO
== END ==
LOC: M WHC 08:57
PROVIDERS: ATTEND General Practice
DX: C61 Malignant neoplasm of prostate (principal); C79.51 Secondary malignant neoplasm of bone; R07.81 Pleurodynia; M51.34 Other intervertebral disc degeneration, thoracic region; I70.0 Atherosclerosis of aorta

== ENCOUNTER → 2023-06-08 | Outpatient (CLI) | payer MEDICARE ==
[~2023-06-08] MED LIST changes: -ALEN70TA82 PO
== END ==
LOC: M PLAIMG 10:28
PROVIDERS: ATTEND Physician Assistant
DX: R07.81 Pleurodynia (principal); M51.34 Other intervertebral disc degeneration, thoracic region; I70.0 Atherosclerosis of aorta

== ENCOUNTER → 2023-06-11 | Outpatient (CLI) | payer MEDICARE ==
[~2023-06-11] MED LIST changes: +ALEN70TA82 PO
== END ==
LOC: M ONCR 07:59
PROVIDERS: ATTEND General Practice
DX: C79.51 Secondary malignant neoplasm of bone (principal); C61 Malignant neoplasm of prostate; R97.21 Rising PSA following treatment for malignant neoplasm of prostate; M81.0 Age-related osteoporosis without current pathological fracture; Z71.2 Person consulting for explanation of examination or test findings; Z79.899 Other long term (current) drug therapy; Z92.29 Personal history of other drug therapy; Z92.3 Personal history of irradiation

== ENCOUNTER 2023-06-25 13:36 | Emergency (ER) | payer MEDICARE ==
[~2023-06-25] VITALS: Ht 167.6 cm; Wt 99.1 kg
[2023-06-25] MEDS ORDERED: ASPIRIN 81MG CHEW TABLET PO ONE (14:40)
[2023-06-25] MEDS: NITROGLYCERIN 0.4MG SUBL TABLET SL PRN ×2 (14:55→15:09)
[2023-06-25 15:00] LABS: BASO % 0.5 % (0.0-1.0); EOS # 0.1 10^3/uL (0.0-0.5); EOS % 1.2 % (0.0-3.0); HEMATOCRIT 39.2 % (42.0-52.0); HEMOGLOBIN 12.8 g/dl (13.5-17.5); LYMPH % 14.4 % (24.0-44.0); MEAN CORPUSCULAR HEMOGLOBIN 28.9 pg (27.0-33.0); MEAN CORPUSCULAR HGB CONC 32.7 g/dl (32.0-36.5); MEAN CORPUSCULAR VOLUME 88.5 fl (80.0-96.0); MONO # 0.6 10^3/uL (0.0-0.8); MONO % 8.3 % (2.0-8.0); NEUTROPHILS % 75.1 % (36.0-66.0); PLATELET COUNT, AUTOMATED 138 10^3/uL (150-450); RED BLOOD COUNT 4.43 10^6/uL (4.30-6.10); WHITE BLOOD COUNT 6.6 10^3/uL (4.0-10.0)
[2023-06-25 15:05] LABS: CK-MB VALUE MASS < 1.0 NG/ML (<3.6)
[2023-06-25 15:06] LABS: ALBUMIN 3.8 G/DL (3.2-5.2); ALKALINE PHOSPHATASE 108 U/L (46-116); ALT/SGPT 35 U/L (7.0-40); AST/SGOT 34 U/L (<34); BILIRUBIN,DIRECT < 0.1 MG/DL (<0.4); BILIRUBIN,TOTAL 0.4 MG/DL (0.3-1.2); BLOOD UREA NITROGEN 28 MG/DL (9-23); CALCIUM LEVEL 9.5 MG/DL (8.3-10.6); CARBON DIOXIDE LEVEL 24 MMOL/L (20-31); CHLORIDE LEVEL 106 MMOL/L (98-107); CREATININE FOR GFR 0.92 MG/DL (0.70-1.30); GLOMERULAR FILTRATION RATE > 60.0 (>42); GLUCOSE, FASTING 130 MG/DL (74-106); POTASSIUM SERUM 4.3 MMOL/L (3.5-5.1); SODIUM LEVEL 139 MMOL/L (136-145); TOTAL PROTEIN 6.8 G/DL (5.7-8.2)
[2023-06-25 15:08] LABS: FREE T4 1.22 NG/DL (0.89-1.76); THYROID STIMULATING HORMONE 1.938 uIU/ML (0.55-4.78)
[2023-06-25 15:09] VITALS: BP 129/83
[2023-06-25 15:13] LABS: CPK CREATINE PHOSPHOKINASE 64 U/L (46-171); INR 1.02; MB/CK RELATIVE INDEX 1.56 (< OR =4); PROTHROMBIN TIME 13.1 SECONDS (12.5-14.5)
[2023-06-25 15:14] LABS: PARTIAL THROMBOPLASTIN TIME 27.9 SECONDS (24.8-34.2)
[2023-06-25] MEDS ORDERED: ISOVUE-370 76% 100ML VIAL As Ordered ONE (15:21)
[2023-06-25 16:12] LABS: CK-MB VALUE MASS < 1.0 NG/ML (<3.6)
[2023-06-25 16:16] LABS: CPK CREATINE PHOSPHOKINASE 53 U/L (46-171); MB/CK RELATIVE INDEX 1.88 (< OR =4)
[2023-06-25 17:23] VITALS: BP 158/96; TEMP 97.8; O2SAT 96
== END 2023-06-25 17:46 | disposition home or self-care (01) ==
LOC: M ED 13:36
DX: S22.050A Wedge compression fracture of T5-T6 vertebra, initial encounter for closed fracture (principal); S22.31XA Fracture of one rib, right side, initial encounter for closed fracture; K44.9 Diaphragmatic hernia without obstruction or gangrene; R07.9 Chest pain, unspecified; R91.1 Solitary pulmonary nodule; I44.4 Left anterior fascicular block; I45.81 Long QT syndrome; I49.3 Ventricular premature depolarization; E78.5 Hyperlipidemia, unspecified; K76.0 Fatty (change of) liver, not elsewhere classified; F17.200 Nicotine dependence, unspecified, uncomplicated; C61 Malignant neoplasm of prostate; Z79.899 Other long term (current) drug therapy
CPT/HCPCS: 36415; 71046; 71275; 80048; 80076; 82550; 82553; 84439; 84443; 84484; 85025; 85610; 85730; 93005; 93041; 94760; 99285; Q9967

== ENCOUNTER 2023-07-23 10:57 | Inpatient (IN) | payer MEDICARE ==
[~2023-07-23] VITALS: Ht 167.6 cm; Wt 95.5 kg
[~2023-07-23 10:57] MED LIST changes: +FENT1DIS14 TOP; +HYDR-4517 PO; +ONDA-83 PO; +OXYC-141 PO
[2023-07-23 12:06] VITALS: BP 140/90; TEMP 97.7; O2SAT 100
[2023-07-23] MEDS ORDERED: FENTANYL REMOVAL DOCUMENTATION MISC XX SCH (12:25)
[2023-07-23] MEDS ORDERED: HYDROMORPHONE HCL 0.5 MG/ 0.5 ML SYRINGE IV ONE (12:50)
[2023-07-23] MEDS ORDERED: MED REC IN PROGRESS XX SCH (12:55)
[2023-07-23] MEDS ORDERED: AMOX875T PO (13:02)
[2023-07-23 13:13] LABS: BASO % 0.3 % (0.0-1.0); EOS % 0.3 % (0.0-3.0); HEMATOCRIT 40.3 % (42.0-52.0); HEMOGLOBIN 13.1 g/dl (13.5-17.5); LYMPH # 1.1 10^3/uL (1.5-5.0); LYMPH % 16.3 % (24.0-44.0); MEAN CORPUSCULAR HEMOGLOBIN 28.1 pg (27.0-33.0); MEAN CORPUSCULAR HGB CONC 32.5 g/dl (32.0-36.5); MEAN CORPUSCULAR VOLUME 86.5 fl (80.0-96.0); MONO # 0.6 10^3/uL (0.0-0.8); MONO % 8.8 % (2.0-8.0); NEUTROPHILS # 4.8 10^3/uL (1.5-8.5); NEUTROPHILS % 72.9 % (36.0-66.0); PLATELET COUNT, AUTOMATED 195 10^3/uL (150-450); RED BLOOD COUNT 4.66 10^6/uL (4.30-6.10); WHITE BLOOD COUNT 6.5 10^3/uL (4.0-10.0)
[2023-07-23 13:21] LABS: INR 1.12; PROTHROMBIN TIME 14.1 SECONDS (12.5-14.5)
[2023-07-23 13:41] LABS: ALBUMIN 3.8 G/DL (3.2-5.2); ALKALINE PHOSPHATASE 109 U/L (46-116); ALT/SGPT 20 U/L (7.0-40); AST/SGOT 33 U/L (<34); BILIRUBIN,TOTAL 0.4 MG/DL (0.3-1.2); BLOOD UREA NITROGEN 20 MG/DL (9-23); CARBON DIOXIDE LEVEL 27 MMOL/L (20-31); CHLORIDE LEVEL 101 MMOL/L (98-107); CREATININE FOR GFR 0.99 MG/DL (0.70-1.30); GLOMERULAR FILTRATION RATE > 60.0 (>42); GLUCOSE, FASTING 111 MG/DL (74-106); POTASSIUM SERUM 4.2 MMOL/L (3.5-5.1); SODIUM LEVEL 136 MMOL/L (136-145)
[2023-07-23] MEDS ORDERED: fentaNYL 25 MCG/HR PATCH TOP SCH (14:00)
[2023-07-23] MEDS: ONDANSETRON 4MG 2ML VIAL IV PRN (14:43)
[2023-07-23] MEDS: PERCOCET 5MG/325MG TAB PO PRN ×2 (16:57→22:05)
[2023-07-23] MEDS: HYDROMORPHONE HCL 0.5 MG/ 0.5 ML SYRINGE IV PRN (19:38)
[2023-07-23] MEDS: DOCUSATE SODIUM 100MG CAPSULE PO SCH (20:47)
[2023-07-23] MEDS: SENNA 8.6 MG TAB (SENOKOT) PO SCH (20:47)
[2023-07-23 22:00] VITALS: BP 112/70; TEMP 97.3; O2SAT 95
[2023-07-23] MEDS: tiZANidine 4 MG TAB PO PRN (22:05)
[2023-07-24] MEDS: HYDROMORPHONE HCL 0.5 MG/ 0.5 ML SYRINGE IV PRN ×3 (00:04→20:06)
[2023-07-24] MEDS: ONDANSETRON 4MG 2ML VIAL IV PRN (04:45)
[2023-07-24] MEDS ORDERED: PROMETHAZINE 25MG/ML 1ML VIAL IV PRN (05:10)
[2023-07-24 05:23] VITALS: BP 122/80; TEMP 97; O2SAT 95
[2023-07-24] MEDS: PERCOCET 5MG/325MG TAB PO PRN ×3 (06:11→18:42)
[2023-07-24 06:18] LABS: BASO % 0.6 % (0.0-1.0); EOS # 0.1 10^3/uL (0.0-0.5); EOS % 1.3 % (0.0-3.0); HEMATOCRIT 41.2 % (42.0-52.0); HEMOGLOBIN 13.2 g/dl (13.5-17.5); LYMPH # 1.2 10^3/uL (1.5-5.0); LYMPH % 25.9 % (24.0-44.0); MEAN CORPUSCULAR HEMOGLOBIN 28.3 pg (27.0-33.0); MEAN CORPUSCULAR VOLUME 88.2 fl (80.0-96.0); MONO # 0.5 10^3/uL (0.0-0.8); MONO % 10.7 % (2.0-8.0); NEUTROPHILS # 2.9 10^3/uL (1.5-8.5); NEUTROPHILS % 60.9 % (36.0-66.0); PLATELET COUNT, AUTOMATED 148 10^3/uL (150-450); RED BLOOD COUNT 4.67 10^6/uL (4.30-6.10); WHITE BLOOD COUNT 4.7 10^3/uL (4.0-10.0)
[2023-07-24 06:38] LABS: BLOOD UREA NITROGEN 23 MG/DL (9-23); CALCIUM LEVEL 9.9 MG/DL (8.3-10.6); CARBON DIOXIDE LEVEL 28 MMOL/L (20-31); CHLORIDE LEVEL 100 MMOL/L (98-107); CREATININE FOR GFR 0.93 MG/DL (0.70-1.30); GLOMERULAR FILTRATION RATE > 60.0 (>42); GLUCOSE, FASTING 103 MG/DL (74-106); POTASSIUM SERUM 4.1 MMOL/L (3.5-5.1); SODIUM LEVEL 137 MMOL/L (136-145)
[2023-07-24] MEDS: DOCUSATE SODIUM 100MG CAPSULE PO SCH ×2 (08:53→20:05)
[2023-07-24] MEDS: SENNA 8.6 MG TAB (SENOKOT) PO SCH ×2 (08:53→20:05)
[2023-07-24] MEDS ORDERED: PROCHLORPERAZINE 10MG 2ML VIAL IV PRN (09:35)
[2023-07-24] MEDS ORDERED: PANTOPRAZOLE 40MG VIAL IV ONE (10:00)
[2023-07-24 14:00] VITALS: BP 117/72; TEMP 97.3; O2SAT 100
[2023-07-24 18:42] VITALS: BP 125/75
[2023-07-24] MEDS: tiZANidine 4 MG TAB PO PRN (20:05)
[2023-07-24] MEDS: PANTOPRAZOLE 40MG TAB (PROTONIX) PO SCH (20:05)
[2023-07-24 21:51] VITALS: BP 122/80; TEMP 97.7; O2SAT 95
[2023-07-25] MEDS: HYDROMORPHONE HCL 0.5 MG/ 0.5 ML SYRINGE IV PRN ×2 (02:19→10:59)
[2023-07-25] MEDS: tiZANidine 4 MG TAB PO PRN (05:32)
[2023-07-25] MEDS: PERCOCET 5MG/325MG TAB PO PRN ×2 (05:32→22:53)
[2023-07-25 05:55] LABS: BASO % 0.6 % (0.0-1.0); EOS # 0.1 10^3/uL (0.0-0.5); EOS % 1.8 % (0.0-3.0); HEMATOCRIT 39.3 % (42.0-52.0); HEMOGLOBIN 12.7 g/dl (13.5-17.5); LYMPH % 21.3 % (24.0-44.0); MEAN CORPUSCULAR HEMOGLOBIN 28.3 pg (27.0-33.0); MEAN CORPUSCULAR HGB CONC 32.3 g/dl (32.0-36.5); MEAN CORPUSCULAR VOLUME 87.7 fl (80.0-96.0); MONO # 0.5 10^3/uL (0.0-0.8); MONO % 10.2 % (2.0-8.0); NEUTROPHILS # 3.2 10^3/uL (1.5-8.5); NEUTROPHILS % 65.5 % (36.0-66.0); PLATELET COUNT, AUTOMATED 168 10^3/uL (150-450); RED BLOOD COUNT 4.48 10^6/uL (4.30-6.10); WHITE BLOOD COUNT 4.9 10^3/uL (4.0-10.0)
[2023-07-25 06:00] VITALS: BP 110/80; TEMP 97.3; O2SAT 94
[2023-07-25 06:24] LABS: BLOOD UREA NITROGEN 23 MG/DL (9-23); CALCIUM LEVEL 9.6 MG/DL (8.3-10.6); CARBON DIOXIDE LEVEL 27 MMOL/L (20-31); CHLORIDE LEVEL 102 MMOL/L (98-107); CREATININE FOR GFR 0.98 MG/DL (0.70-1.30); GLOMERULAR FILTRATION RATE > 60.0 (>42); GLUCOSE, FASTING 93 MG/DL (74-106); POTASSIUM SERUM 4.2 MMOL/L (3.5-5.1); SODIUM LEVEL 137 MMOL/L (136-145)
[2023-07-25] MEDS ORDERED: fentaNYL 25 MCG/HR PATCH TOP SCH (09:00)
[2023-07-25] MEDS: DOCUSATE SODIUM 100MG CAPSULE PO SCH ×2 (09:30→22:52)
[2023-07-25] MEDS: SENNA 8.6 MG TAB (SENOKOT) PO SCH ×2 (09:30→22:52)
[2023-07-25] MEDS: MOM 30ML SUSPENSION UDC PO SCH (09:30)
[2023-07-25] MEDS ORDERED: FLEET ENEMA PR PRN (10:00)
[2023-07-25] MEDS: GABAPENTIN 100 MG CAP PO SCH ×3 (10:53→22:52)
[2023-07-25] MEDS: carisoprodoL 350 MG TAB PO SCH ×3 (10:53→22:52)
[2023-07-25] MEDS: ONDANSETRON 4MG 2ML VIAL IV PRN (11:06)
[2023-07-25 14:00] VITALS: BP 134/78; TEMP 97.7; O2SAT 95
[2023-07-25] MEDS: ONDANSETRON 4MG ORAL DISINTEGRATING TAB SL SCH (19:05)
[2023-07-25 22:00] VITALS: BP 120/60; TEMP 98.1; O2SAT 93
[2023-07-25] MEDS: PANTOPRAZOLE 40MG TAB (PROTONIX) PO SCH (22:52)
[2023-07-26 06:00] VITALS: BP 126/70; TEMP 97.5; O2SAT 95
[2023-07-26 06:11] LABS: BASO % 0.5 % (0.0-1.0); EOS # 0.1 10^3/uL (0.0-0.5); EOS % 1.4 % (0.0-3.0); HEMATOCRIT 40.3 % (42.0-52.0); HEMOGLOBIN 13.1 g/dl (13.5-17.5); LYMPH # 1.6 10^3/uL (1.5-5.0); LYMPH % 27.7 % (24.0-44.0); MEAN CORPUSCULAR HEMOGLOBIN 28.6 pg (27.0-33.0); MEAN CORPUSCULAR HGB CONC 32.5 g/dl (32.0-36.5); MONO # 0.6 10^3/uL (0.0-0.8); MONO % 10.4 % (2.0-8.0); NEUTROPHILS # 3.5 10^3/uL (1.5-8.5); NEUTROPHILS % 59.7 % (36.0-66.0); PLATELET COUNT, AUTOMATED 184 10^3/uL (150-450); RED BLOOD COUNT 4.58 10^6/uL (4.30-6.10); WHITE BLOOD COUNT 5.9 10^3/uL (4.0-10.0)
[2023-07-26] MEDS: ONDANSETRON 4MG ORAL DISINTEGRATING TAB SL SCH ×5 (06:18→23:16)
[2023-07-26 06:42] LABS: BLOOD UREA NITROGEN 17 MG/DL (9-23); CALCIUM LEVEL 9.6 MG/DL (8.3-10.6); CARBON DIOXIDE LEVEL 30 MMOL/L (20-31); CHLORIDE LEVEL 102 MMOL/L (98-107); CREATININE FOR GFR 1.04 MG/DL (0.70-1.30); GLOMERULAR FILTRATION RATE > 60.0 (>42); GLUCOSE, FASTING 87 MG/DL (74-106); POTASSIUM SERUM 4.8 MMOL/L (3.5-5.1); SODIUM LEVEL 138 MMOL/L (136-145)
[2023-07-26] MEDS: DOCUSATE SODIUM 100MG CAPSULE PO SCH ×2 (08:44→19:56)
[2023-07-26] MEDS: GABAPENTIN 100 MG CAP PO SCH ×3 (08:44→19:56)
[2023-07-26] MEDS: carisoprodoL 350 MG TAB PO SCH ×3 (08:44→19:56)
[2023-07-26] MEDS: SENNA 8.6 MG TAB (SENOKOT) PO SCH ×2 (08:44→19:56)
[2023-07-26] MEDS: MOM 30ML SUSPENSION UDC PO SCH (08:44)
[2023-07-26] MEDS: PERCOCET 5MG/325MG TAB PO PRN ×2 (08:51→17:31)
[2023-07-26] MEDS ORDERED: BISACODYL 10MG SUPP PR PRN (11:35)
[2023-07-26 14:00] VITALS: BP 120/62; TEMP 97.5; O2SAT 96
[2023-07-26] MEDS ORDERED: fentaNYL 25 MCG/HR PATCH TOP SCH (14:00)
[2023-07-26] MEDS ORDERED: fentaNYL 50 MCG/HR PATCH TOP SCH (14:00)
[2023-07-26] MEDS ORDERED: FENTANYL REMOVAL DOCUMENTATION MISC XX SCH (14:00)
[2023-07-26] MEDS: RIVAROXABAN 10MG TAB (XARELTO) PO SCH (17:27)
[2023-07-26] MEDS: PANTOPRAZOLE 40MG TAB (PROTONIX) PO SCH (19:56)
[2023-07-26 20:00] VITALS: BP 116/70; TEMP 97.9; O2SAT 95
[2023-07-27] MEDS: ONDANSETRON 4MG ORAL DISINTEGRATING TAB SL SCH ×4 (05:23→23:15)
[2023-07-27 06:00] VITALS: BP 116/68; TEMP 97.7; O2SAT 95
[2023-07-27 06:10] LABS: BASO % 0.2 % (0.0-1.0); EOS # 0.1 10^3/uL (0.0-0.5); EOS % 1.1 % (0.0-3.0); HEMATOCRIT 39.3 % (42.0-52.0); HEMOGLOBIN 12.8 g/dl (13.5-17.5); LYMPH # 0.9 10^3/uL (1.5-5.0); LYMPH % 15.6 % (24.0-44.0); MEAN CORPUSCULAR HEMOGLOBIN 28.4 pg (27.0-33.0); MEAN CORPUSCULAR HGB CONC 32.6 g/dl (32.0-36.5); MEAN CORPUSCULAR VOLUME 87.3 fl (80.0-96.0); MONO # 0.5 10^3/uL (0.0-0.8); MONO % 8.5 % (2.0-8.0); NEUTROPHILS # 4.1 10^3/uL (1.5-8.5); NEUTROPHILS % 74.1 % (36.0-66.0); PLATELET COUNT, AUTOMATED 152 10^3/uL (150-450); WHITE BLOOD COUNT 5.6 10^3/uL (4.0-10.0)
[2023-07-27 06:40] LABS: BLOOD UREA NITROGEN 18 MG/DL (9-23); CALCIUM LEVEL 9.7 MG/DL (8.3-10.6); CARBON DIOXIDE LEVEL 29 MMOL/L (20-31); CHLORIDE LEVEL 103 MMOL/L (98-107); CREATININE FOR GFR 1.01 MG/DL (0.70-1.30); GLOMERULAR FILTRATION RATE > 60.0 (>42); GLUCOSE, FASTING 88 MG/DL (74-106); POTASSIUM SERUM 4.6 MMOL/L (3.5-5.1); SODIUM LEVEL 137 MMOL/L (136-145)
[2023-07-27 08:00] VITALS: BP 116/70; TEMP 98.1; O2SAT 93
[2023-07-27] MEDS: carisoprodoL 350 MG TAB PO SCH ×3 (08:31→20:16)
[2023-07-27] MEDS: SENNA 8.6 MG TAB (SENOKOT) PO SCH ×2 (08:32→20:16)
[2023-07-27] MEDS: MOM 30ML SUSPENSION UDC PO SCH (08:34)
[2023-07-27] MEDS: PERCOCET 5MG/325MG TAB PO PRN ×2 (08:34→17:11)
[2023-07-27] MEDS: DOCUSATE SODIUM 100MG CAPSULE PO SCH ×2 (08:34→20:16)
[2023-07-27] MEDS: GABAPENTIN 100 MG CAP PO SCH ×3 (08:34→20:16)
[2023-07-27 14:00] VITALS: BP 130/64; TEMP 97.7; O2SAT 97
[2023-07-27] MEDS ORDERED: fentaNYL 75 MCG/HR PATCH TOP SCH (14:00)
[2023-07-27] MEDS: RIVAROXABAN 10MG TAB (XARELTO) PO SCH (17:10)
[2023-07-27 20:00] VITALS: BP 113/78; TEMP 97.3; O2SAT 96
[2023-07-27] MEDS: PANTOPRAZOLE 40MG TAB (PROTONIX) PO SCH (20:16)
[2023-07-28 04:52] VITALS: BP 146/79; TEMP 97.9; O2SAT 95
[2023-07-28] MEDS: ONDANSETRON 4MG ORAL DISINTEGRATING TAB SL SCH ×3 (05:27→17:00)
[2023-07-28 06:28] LABS: BASO % 0.2 % (0.0-1.0); EOS % 0.8 % (0.0-3.0); HEMATOCRIT 36.8 % (42.0-52.0); HEMOGLOBIN 11.7 g/dl (13.5-17.5); LYMPH # 0.6 10^3/uL (1.5-5.0); LYMPH % 11.5 % (24.0-44.0); MEAN CORPUSCULAR HEMOGLOBIN 28.1 pg (27.0-33.0); MEAN CORPUSCULAR HGB CONC 31.8 g/dl (32.0-36.5); MEAN CORPUSCULAR VOLUME 88.2 fl (80.0-96.0); MONO # 0.5 10^3/uL (0.0-0.8); MONO % 8.8 % (2.0-8.0); NEUTROPHILS # 4.1 10^3/uL (1.5-8.5); NEUTROPHILS % 77.9 % (36.0-66.0); PLATELET COUNT, AUTOMATED 149 10^3/uL (150-450); RED BLOOD COUNT 4.17 10^6/uL (4.30-6.10); WHITE BLOOD COUNT 5.2 10^3/uL (4.0-10.0)
[2023-07-28 07:01] LABS: BLOOD UREA NITROGEN 16 MG/DL (9-23); CALCIUM LEVEL 9.2 MG/DL (8.3-10.6); CARBON DIOXIDE LEVEL 31 MMOL/L (20-31); CHLORIDE LEVEL 103 MMOL/L (98-107); GLOMERULAR FILTRATION RATE > 60.0 (>42); GLUCOSE, FASTING 86 MG/DL (74-106); POTASSIUM SERUM 4.8 MMOL/L (3.5-5.1); SODIUM LEVEL 140 MMOL/L (136-145)
[2023-07-28] MEDS: carisoprodoL 350 MG TAB PO SCH ×3 (08:23→20:19)
[2023-07-28] MEDS: DOCUSATE SODIUM 100MG CAPSULE PO SCH ×2 (08:23→20:19)
[2023-07-28] MEDS: MOM 30ML SUSPENSION UDC PO SCH (08:23)
[2023-07-28] MEDS: SENNA 8.6 MG TAB (SENOKOT) PO SCH ×2 (08:23→20:19)
[2023-07-28] MEDS: GABAPENTIN 100 MG CAP PO SCH ×3 (08:23→20:19)
[2023-07-28] MEDS: PERCOCET 5MG/325MG TAB PO PRN ×2 (08:24→20:20)
[2023-07-28] MEDS ORDERED: GABAPENTIN 100 MG CAP PO SCH (09:00)
[2023-07-28] MEDS ORDERED: FENTANYL REMOVAL DOCUMENTATION MISC XX SCH (09:00)
[2023-07-28] MEDS ORDERED: GABAPENTIN 100 MG CAP PO ONE (09:45)
[2023-07-28] MEDS: LIDOCAINE 5% (LIDODERM) PATCH TD SCH (09:45)
[2023-07-28] MEDS ORDERED: PERCOCET 5MG/325MG TAB PO PRN (12:35)
[2023-07-28 14:00] VITALS: BP 116/66; TEMP 97.9; O2SAT 99
[2023-07-28] MEDS: RIVAROXABAN 10MG TAB (XARELTO) PO SCH (17:00)
[2023-07-28] MEDS: PANTOPRAZOLE 40MG TAB (PROTONIX) PO SCH (20:19)
[2023-07-28 20:21] VITALS: BP 140/89; TEMP 97.9; O2SAT 95
[2023-07-29] MEDS: ONDANSETRON 4MG ORAL DISINTEGRATING TAB SL SCH ×3 (00:12→12:05)
[2023-07-29] MEDS: PERCOCET 5MG/325MG TAB PO PRN ×2 (06:10→12:07)
[2023-07-29 06:18] VITALS: BP 146/89; TEMP 97.9; O2SAT 95
[2023-07-29 07:55] LABS: BASO % 0.2 % (0.0-1.0); EOS % 0.6 % (0.0-3.0); HEMOGLOBIN 12.2 g/dl (13.5-17.5); LYMPH # 0.5 10^3/uL (1.5-5.0); LYMPH % 9.4 % (24.0-44.0); MEAN CORPUSCULAR HEMOGLOBIN 27.9 pg (27.0-33.0); MEAN CORPUSCULAR HGB CONC 31.3 g/dl (32.0-36.5); MEAN CORPUSCULAR VOLUME 89.2 fl (80.0-96.0); MONO # 0.4 10^3/uL (0.0-0.8); MONO % 8.8 % (2.0-8.0); NEUTROPHILS # 3.9 10^3/uL (1.5-8.5); NEUTROPHILS % 80.6 % (36.0-66.0); PLATELET COUNT, AUTOMATED 147 10^3/uL (150-450); RED BLOOD COUNT 4.37 10^6/uL (4.30-6.10); WHITE BLOOD COUNT 4.9 10^3/uL (4.0-10.0)
[2023-07-29] MEDS: DOCUSATE SODIUM 100MG CAPSULE PO SCH (08:17)
[2023-07-29] MEDS: LIDOCAINE 5% (LIDODERM) PATCH TD SCH (08:17)
[2023-07-29] MEDS: carisoprodoL 350 MG TAB PO SCH ×2 (08:18→15:46)
[2023-07-29] MEDS: GABAPENTIN 100 MG CAP PO SCH ×2 (08:18→15:46)
[2023-07-29] MEDS: MOM 30ML SUSPENSION UDC PO SCH (08:18)
[2023-07-29] MEDS: SENNA 8.6 MG TAB (SENOKOT) PO SCH (08:18)
[2023-07-29 08:28] LABS: BLOOD UREA NITROGEN 19 MG/DL (9-23); CALCIUM LEVEL 9.4 MG/DL (8.3-10.6); CARBON DIOXIDE LEVEL 28 MMOL/L (20-31); CHLORIDE LEVEL 103 MMOL/L (98-107); CREATININE FOR GFR 0.92 MG/DL (0.70-1.30); GLOMERULAR FILTRATION RATE > 60.0 (>42); GLUCOSE, FASTING 91 MG/DL (74-106); POTASSIUM SERUM 5.2 MMOL/L (3.5-5.1); SODIUM LEVEL 139 MMOL/L (136-145)
[2023-07-29] MEDS ORDERED: PERCOCET PO (12:41)
[2023-07-29] MEDS ORDERED: SENN-188 PO (12:41)
[2023-07-29] MEDS ORDERED: CARI1TAB7 PO (12:41)
[2023-07-29] MEDS ORDERED: PANT40TA29 PO (12:41)
[2023-07-29] MEDS ORDERED: GABA-1171 PO (12:41)
[2023-07-29] MEDS ORDERED: FENT75DI29 TOP (12:41)
[2023-07-29] MEDS ORDERED: LIDO5TD TD (12:41)
[2023-07-29] MEDS ORDERED: COLA100C5 PO (12:41)
[2023-07-29 14:00] VITALS: BP 135/85; TEMP 96.4; O2SAT 95
[2023-07-29] MEDS ORDERED: FLUZONE HIGH DOSE(65YR UP)QUAD/PF 240MCG/0.7ML SYRINGE IM.IMMUN ONE ×2 (15:00→17:00)
[2023-08-02] MEDS ORDERED: CARI1TAB7 PO (09:54)
== END 2023-07-29 16:10 | disposition home or self-care (01) | DRG 948 ==
LOC: M MSPAV 11:45
PROVIDERS: ADMIT Internal Medicine Nephrology; ATTEND Internal Medicine
DX: G89.3 Neoplasm related pain (acute) (chronic) (principal); C79.51 Secondary malignant neoplasm of bone; M84.58XA Pathological fracture in neoplastic disease, other specified site, initial encounter for fracture; C78.01 Secondary malignant neoplasm of right lung; C61 Malignant neoplasm of prostate; E78.5 Hyperlipidemia, unspecified; I71.40 Abdominal aortic aneurysm, without rupture, unspecified; K76.0 Fatty (change of) liver, not elsewhere classified; R11.2 Nausea with vomiting, unspecified; T40.2X5A Adverse effect of other opioids, initial encounter; E66.9 Obesity, unspecified; M62.838 Other muscle spasm; K59.00 Constipation, unspecified; Z66 Do not resuscitate; Z87.891 Personal history of nicotine dependence; Z68.34 Body mass index [BMI] 34.0-34.9, adult

== ENCOUNTER 2023-08-04 12:23 | Outpatient (RCR) | payer MEDICARE ==
[~2023-08-04 12:23] MED LIST changes: -BICA50TA9 PO; -FENT75DI29 TD; -LIDO5DIS41 TOP; -MIRA3350 PO; -OXYC1TAB23 PO; -SENN-186 PO; -SOMA350T PO; -XTAN40CA PO
[2023-08-04] MEDS ORDERED: LIDO5DIS41 TOP (13:41)
[2023-08-04] MEDS ORDERED: FENT75DI29 TD (13:52)
[2023-08-04] MEDS ORDERED: OXYC1TAB23 PO (13:56)
[2023-08-04] MEDS ORDERED: SOMA350T PO (13:56)
[2023-08-04] MEDS ORDERED: SENN-186 PO (14:04)
[2023-08-04] MEDS ORDERED: MIRA3350 PO (14:04)
[2023-08-04] MEDS ORDERED: GABA-1171 PO (14:04)
[2023-08-04] MEDS ORDERED: BICA50TA9 PO (16:17)
[2023-08-04] MEDS ORDERED: XTAN40CA PO (16:42)
[2023-08-06] MEDS ORDERED: FENT75DI29 TD (11:07)
== END 2023-08-10 ==
PROVIDERS: ATTEND General Practice
DX: Z51.0 Encounter for antineoplastic radiation therapy (principal); C79.51 Secondary malignant neoplasm of bone

== ENCOUNTER → 2023-08-04 | Outpatient (CLI) | payer MEDICARE ==
[~2023-08-04] VITALS: Ht 167.6 cm; Wt 94.8 kg
[~2023-08-04] MED LIST changes: +AMOX875T PO; +BICA50TA9 PO; +CARI1TAB7 PO; +COLA100C5 PO; +FENT75DI29 TD; +FENT75DI29 TOP; +GABA-1171 PO; +LIDO5DIS41 TOP; +LIDO5TD TD; +MIRA3350 PO; +OXYC1TAB23 PO; +PANT40TA29 PO; +PERCOCET PO; +SENN-186 PO; +SENN-188 PO; +SOMA350T PO; +XTAN40CA PO
[2023-08-04 13:03] VITALS: BP 134/81; O2SAT 94
[2023-08-04 13:04] VITALS: O2SAT 94
== END ==
LOC: M PAL 12:38
PROVIDERS: ATTEND Nurse Practitioner Adult Health
DX: G89.3 Neoplasm related pain (acute) (chronic) (principal); C79.51 Secondary malignant neoplasm of bone; C61 Malignant neoplasm of prostate; K59.00 Constipation, unspecified; Z51.5 Encounter for palliative care; Z66 Do not resuscitate; Z79.891 Long term (current) use of opiate analgesic; Z79.899 Other long term (current) drug therapy; Z80.0 Family history of malignant neoplasm of digestive organs; Z87.891 Personal history of nicotine dependence; Z92.3 Personal history of irradiation

== ENCOUNTER → 2023-08-13 | Outpatient (CLI) | payer MEDICARE ==
[~2023-08-13] MED LIST changes: +BICA50TA9 PO; +FENT75DI29 TD; +LEUPROLIDE 45MG SYRINGE KIT (LUPRON DEPOT) (FOR ONCOLOGY) IM ONE; +LIDO5DIS41 TOP; +MIRA3350 PO; +OXYC1TAB23 PO; +SENN-186 PO; +SOMA350T PO; +XTAN40CA PO
== END ==
LOC: M ONCR 11:14
PROVIDERS: ATTEND General Practice
DX: C61 Malignant neoplasm of prostate (principal); M41.86 Other forms of scoliosis, lumbar region; M43.04 Spondylolysis, thoracic region; M51.37 Other intervertebral disc degeneration, lumbosacral region; N13.9 Obstructive and reflux uropathy, unspecified; R29.6 Repeated falls; W01.0XXA Fall on same level from slipping, tripping and stumbling without subsequent striking against object, initial encounter; Y92.010 Kitchen of single-family (private) house as the place of occurrence of the external cause; Z79.818 Long term (current) use of other agents affecting estrogen receptors and estrogen levels
CPT/HCPCS: 36415; 72070; 72110; 72190; 84153; 96402; G0463; J9217

== ENCOUNTER → 2023-09-09 | Outpatient (CLI) | payer MEDICARE ==
[~2023-09-09] MED LIST changes: -LEUPROLIDE 45MG SYRINGE KIT (LUPRON DEPOT) (FOR ONCOLOGY) IM ONE
[2023-09-09 09:54] LABS: BASO % 0.4 % (0.0-1.0); EOS # 0.2 10^3/uL (0.0-0.5); EOS % 3.5 % (0.0-3.0); HEMATOCRIT 40.4 % (42.0-52.0); HEMOGLOBIN 12.8 g/dl (13.5-17.5); LYMPH # 0.3 10^3/uL (1.5-5.0); MEAN CORPUSCULAR HEMOGLOBIN 27.6 pg (27.0-33.0); MEAN CORPUSCULAR HGB CONC 31.7 g/dl (32.0-36.5); MEAN CORPUSCULAR VOLUME 87.3 fl (80.0-96.0); MONO # 0.4 10^3/uL (0.0-0.8); MONO % 7.3 % (2.0-8.0); NEUTROPHILS # 4.5 10^3/uL (1.5-8.5); NEUTROPHILS % 83.2 % (36.0-66.0); PLATELET COUNT, AUTOMATED 180 10^3/uL (150-450); RED BLOOD COUNT 4.63 10^6/uL (4.30-6.10); WHITE BLOOD COUNT 5.4 10^3/uL (4.0-10.0)
[2023-09-09 10:20] LABS: ALBUMIN 3.1 G/DL (3.2-5.2); ALKALINE PHOSPHATASE 148 U/L (46-116); ALT/SGPT 15 U/L (7.0-40); AST/SGOT 24 U/L (<34); BILIRUBIN,TOTAL 0.3 MG/DL (0.3-1.2); BLOOD UREA NITROGEN 18 MG/DL (9-23); CALCIUM LEVEL 9.2 MG/DL (8.3-10.6); CARBON DIOXIDE LEVEL 25 MMOL/L (20-31); CHLORIDE LEVEL 101 MMOL/L (98-107); CREATININE FOR GFR 0.83 MG/DL (0.70-1.30); GLOMERULAR FILTRATION RATE > 60.0 (>42); GLUCOSE, FASTING 148 MG/DL (74-106); POTASSIUM SERUM 4.1 MMOL/L (3.5-5.1); SODIUM LEVEL 134 MMOL/L (136-145); TOTAL PROTEIN 6.3 G/DL (5.7-8.2)
[2023-09-09 10:21] LABS: PROSTATIC SPECIFIC AG MONITOR 82.23 NG/ML (< 4.00)
[2023-09-09 10:25] LABS: TESTOSTERONE 7 NG/DL (241-827)
== END ==
LOC: M ONCR 08:33
PROVIDERS: ATTEND General Practice
DX: C79.51 Secondary malignant neoplasm of bone (principal); C61 Malignant neoplasm of prostate; R97.21 Rising PSA following treatment for malignant neoplasm of prostate; Z71.2 Person consulting for explanation of examination or test findings; Z79.818 Long term (current) use of other agents affecting estrogen receptors and estrogen levels; Z79.891 Long term (current) use of opiate analgesic; Z79.899 Other long term (current) drug therapy; Z87.891 Personal history of nicotine dependence; Z92.21 Personal history of antineoplastic chemotherapy; Z92.3 Personal history of irradiation
CPT/HCPCS: 36415; 80053; 84153; 84403; 85025; G0463

== ENCOUNTER → 2023-09-25 | Outpatient (CLI) | payer MEDICARE ==
[2023-09-25 10:24] LABS: BASO % 0.3 % (0.0-1.0); EOS # 0.2 10^3/uL (0.0-0.5); EOS % 3.2 % (0.0-3.0); HEMOGLOBIN 13.7 g/dl (13.5-17.5); LYMPH # 0.5 10^3/uL (1.5-5.0); LYMPH % 7.2 % (24.0-44.0); MEAN CORPUSCULAR HEMOGLOBIN 27.9 pg (27.0-33.0); MEAN CORPUSCULAR HGB CONC 31.9 g/dl (32.0-36.5); MEAN CORPUSCULAR VOLUME 87.6 fl (80.0-96.0); MONO # 0.6 10^3/uL (0.0-0.8); MONO % 8.4 % (2.0-8.0); NEUTROPHILS # 5.4 10^3/uL (1.5-8.5); NEUTROPHILS % 79.7 % (36.0-66.0); PLATELET COUNT, AUTOMATED 162 10^3/uL (150-450); RED BLOOD COUNT 4.91 10^6/uL (4.30-6.10); WHITE BLOOD COUNT 6.8 10^3/uL (4.0-10.0)
[2023-09-25 10:48] LABS: ALBUMIN 3.5 G/DL (3.2-5.2); ALKALINE PHOSPHATASE 154 U/L (46-116); ALT/SGPT 15 U/L (7.0-40); AST/SGOT 26 U/L (<34); BILIRUBIN,TOTAL 0.4 MG/DL (0.3-1.2); BLOOD UREA NITROGEN 14 MG/DL (9-23); CALCIUM LEVEL 9.5 MG/DL (8.3-10.6); CARBON DIOXIDE LEVEL 28 MMOL/L (20-31); CHLORIDE LEVEL 102 MMOL/L (98-107); CREATININE FOR GFR 0.74 MG/DL (0.70-1.30); GLOMERULAR FILTRATION RATE > 60.0 (>42); GLUCOSE, FASTING 91 MG/DL (74-106); IRON (FE) 47 UG/DL (65-175); PERCENT SATURATION 21.2 % (19.7-50.0); SODIUM LEVEL 137 MMOL/L (136-145); TOTAL IRON BINDING CAPACITY 222 UG/DL (250-425); TOTAL PROTEIN 6.8 G/DL (5.7-8.2)
[2023-09-25 10:50] LABS: FERRITIN 971.2 NG/ML (10.5-307.3)
[2023-09-25 11:00] LABS: PROSTATIC SPECIFIC AG MONITOR 157.23 NG/ML (< 4.00)
== END ==
LOC: M LAB 09:48
PROVIDERS: ATTEND General Practice
DX: C61 Malignant neoplasm of prostate (principal)

== ENCOUNTER → 2023-10-02 | Outpatient (CLI) | payer MEDICARE ==
[2023-10-02 10:02] LABS: ALBUMIN 3.5 G/DL (3.2-5.2); ALKALINE PHOSPHATASE 145 U/L (46-116); ALT/SGPT 15 U/L (7.0-40); AST/SGOT 26 U/L (<34); BILIRUBIN,TOTAL 0.4 MG/DL (0.3-1.2); BLOOD UREA NITROGEN 19 MG/DL (9-23); CALCIUM LEVEL 9.4 MG/DL (8.3-10.6); CARBON DIOXIDE LEVEL 27 MMOL/L (20-31); CHLORIDE LEVEL 104 MMOL/L (98-107); CREATININE FOR GFR 0.72 MG/DL (0.70-1.30); GLOMERULAR FILTRATION RATE > 60.0 (>42); GLUCOSE, FASTING 92 MG/DL (74-106); POTASSIUM SERUM 4.1 MMOL/L (3.5-5.1); SODIUM LEVEL 138 MMOL/L (136-145); TOTAL PROTEIN 6.7 G/DL (5.7-8.2)
[2023-10-02 10:04] LABS: TESTOSTERONE 14 NG/DL (241-827)
[2023-10-02 10:19] LABS: PROSTATIC SPECIFIC AG MONITOR 173.29 NG/ML (< 4.00)
== END ==
LOC: M LAB 08:47
PROVIDERS: ATTEND General Practice
DX: C61 Malignant neoplasm of prostate (principal)

== ENCOUNTER → 2023-10-13 | Outpatient (CLI) | payer MEDICARE | LOC: M PAL 09:22 | PROVIDERS: ATTEND Nurse Practitioner Adult Health | DX: C61 Malignant neoplasm of prostate (principal); C79.51 Secondary malignant neoplasm of bone; R97.21 Rising PSA following treatment for malignant neoplasm of prostate; G89.3 Neoplasm related pain (acute) (chronic); I71.40 Abdominal aortic aneurysm, without rupture, unspecified; K76.0 Fatty (change of) liver, not elsewhere classified; R53.83 Other fatigue; Z51.5 Encounter for palliative care; Z66 Do not resuscitate; Z79.891 Long term (current) use of opiate analgesic; Z79.899 Other long term (current) drug therapy; Z80.0 Family history of malignant neoplasm of digestive organs; Z87.891 Personal history of nicotine dependence; Z92.3 Personal history of irradiation ==

== ENCOUNTER → 2023-12-09 | Outpatient (CLI) | payer MEDICARE | LOC: M ONCR 14:30 | PROVIDERS: ATTEND General Practice | DX: C79.51 Secondary malignant neoplasm of bone (principal); R91.8 Other nonspecific abnormal finding of lung field; R63.0 Anorexia; R53.81 Other malaise | CPT/HCPCS: G0463 ×2 ==

== ENCOUNTER → 2023-12-09 | Outpatient (CLI) | payer MEDICARE ==
[2023-12-09 13:31] VITALS: BP 128/70; O2SAT 97
== END ==
LOC: M PAL 13:19
PROVIDERS: ATTEND Nurse Practitioner Adult Health
DX: G89.3 Neoplasm related pain (acute) (chronic) (principal); C61 Malignant neoplasm of prostate; C79.51 Secondary malignant neoplasm of bone; R97.21 Rising PSA following treatment for malignant neoplasm of prostate; K59.00 Constipation, unspecified; R53.83 Other fatigue; R53.1 Weakness; Z51.5 Encounter for palliative care; Z66 Do not resuscitate; Z79.818 Long term (current) use of other agents affecting estrogen receptors and estrogen levels; Z79.891 Long term (current) use of opiate analgesic; Z79.899 Other long term (current) drug therapy; Z80.0 Family history of malignant neoplasm of digestive organs; Z87.891 Personal history of nicotine dependence; Z92.3 Personal history of irradiation; Z99.3 Dependence on wheelchair

== ENCOUNTER 2024-01-08 08:08 | Inpatient (IN) | payer MEDICARE ==
[~2024-01-08] VITALS: Ht 167.6 cm; Wt 85.8 kg
[~2024-01-08 08:08] MED LIST changes: +FURO20TA2 PO
[2024-01-08] MEDS ORDERED: MED REC IN PROGRESS XX SCH (08:40)
[2024-01-08] MEDS ORDERED: ISOVUE-370 76% 100ML VIAL As Ordered ONE (08:44)
[2024-01-08] MEDS: ONDANSETRON 4MG 2ML VIAL IV ONE (08:52)
[2024-01-08] MEDS: MORPHINE 4 MG/ML 1ML VIAL IV PRN (08:52)
[2024-01-08] MEDS: NS 1,000 ML IV ONE (08:53)
[2024-01-08 09:16] LABS: INR 1.09; PARTIAL THROMBOPLASTIN TIME 25.4 SECONDS (24.8-34.2); PROTHROMBIN TIME 13.7 SECONDS (12.5-14.5)
[2024-01-08 09:28] LABS: LIPASE 20 U/L (12-53)
[2024-01-08 09:29] LABS: AMYLASE 42 U/L (30-118)
[2024-01-08 09:30] LABS: ALKALINE PHOSPHATASE 164 U/L (46-116); ALT/SGPT 16 U/L (7.0-40); AST/SGOT 65 U/L (<34); BILIRUBIN,DIRECT 0.2 MG/DL (<0.4); BILIRUBIN,TOTAL 0.6 MG/DL (0.3-1.2); BLOOD UREA NITROGEN 27 MG/DL (9-23); CALCIUM LEVEL 9.8 MG/DL (8.3-10.6); CARBON DIOXIDE LEVEL 28 MMOL/L (20-31); CHLORIDE LEVEL 102 MMOL/L (98-107); CK-MB VALUE MASS < 1.0 NG/ML (<3.6); CREATININE FOR GFR 0.71 MG/DL (0.70-1.30); GLOMERULAR FILTRATION RATE > 60.0 (>42); GLUCOSE, FASTING 104 MG/DL (74-106); SODIUM LEVEL 137 MMOL/L (136-145); TOTAL PROTEIN 6.2 G/DL (5.7-8.2)
[2024-01-08 09:31] LABS: CPK CREATINE PHOSPHOKINASE 104 U/L (46-171); MB/CK RELATIVE INDEX 0.96 (< OR =4)
[2024-01-08 09:36] LABS: BASO % 0.2 % (0.0-1.0); EOS % 0.2 % (0.0-3.0); HEMATOCRIT 33.2 % (42.0-52.0); HEMOGLOBIN 10.7 g/dl (13.5-17.5); LYMPH # 0.6 10^3/uL (1.5-5.0); LYMPH % 11.2 % (24.0-44.0); MEAN CORPUSCULAR HEMOGLOBIN 28.1 pg (27.0-33.0); MEAN CORPUSCULAR HGB CONC 32.2 g/dl (32.0-36.5); MEAN CORPUSCULAR VOLUME 87.1 fl (80.0-96.0); MONO # 0.5 10^3/uL (0.0-0.8); MONO % 9.5 % (2.0-8.0); NEUTROPHILS # 4.2 10^3/uL (1.5-8.5); PLATELET COUNT, AUTOMATED 164 10^3/uL (150-450); RED BLOOD COUNT 3.81 10^6/uL (4.30-6.10); WHITE BLOOD COUNT 5.4 10^3/uL (4.0-10.0)
[2024-01-08] MEDS: NS IV ONE (09:39)
[2024-01-08 09:41] LABS: RSV AMPLIFICATION NEGATIVE (NEGATIVE)
[2024-01-08] MEDS ORDERED: FENT75DI29 TD (09:45)
[2024-01-08] MEDS ORDERED: OXYC1TAB23 PO (10:02)
[2024-01-08] MEDS ORDERED: VITA-199 PO (10:02)
[2024-01-08] MEDS ORDERED: VITATAB73 PO (10:02)
[2024-01-08] MEDS ORDERED: ALEN70TA82 PO (10:02)
[2024-01-08] MEDS ORDERED: GABA-1171 PO (10:02)
[2024-01-08] MEDS ORDERED: SENN-193 PO (10:02)
[2024-01-08] MEDS ORDERED: PANT40TA29 PO (10:02)
[2024-01-08] MEDS ORDERED: CO Q100C10 PO (10:02)
[2024-01-08] MEDS ORDERED: ASCO50TA PO (10:02)
[2024-01-08] MEDS ORDERED: MM S100C PO (10:02)
[2024-01-08] MEDS ORDERED: FURO20TA2 PO (10:02)
[2024-01-08] MEDS ORDERED: MULT-90 PO (10:02)
[2024-01-08] MEDS ORDERED: MED REC COMMENT (10:24)
[2024-01-08 10:25] LABS: CPK CREATINE PHOSPHOKINASE 89 U/L (46-171)
[2024-01-08] MEDS ORDERED: HOME MED LIST COMPLETE! XX SCH (10:25)
[2024-01-08 10:33] LABS: CK-MB VALUE MASS < 1.0 NG/ML (<3.6); MB/CK RELATIVE INDEX 1.12 (< OR =4)
[2024-01-08] MEDS: metOLazone 5 MG TAB PO ONE (13:39)
[2024-01-08] MEDS: ENOXAPARIN 40MG/0.4ML SYRINGE (J1650 PER 10MG) SC ONE (13:41)
[2024-01-08] MEDS: FUROSEMIDE 40MG/4ML VIAL IV ONE (13:41)
[2024-01-08] MEDS ORDERED: FUROSEMIDE injection 250 MG in D5W 225 ML IV SCH ×2 (14:10→17:00)
[2024-01-08 16:41] VITALS: BP 128/69; TEMP 97.2; O2SAT 93
[2024-01-08] MEDS ORDERED: SENNA 8.6 MG TAB (SENOKOT) PO PRN (17:00)
[2024-01-08] MEDS: PERCOCET 5MG/325MG TAB PO SCH (17:44)
[2024-01-08 18:00] VITALS: BP 121/64; TEMP 97.9; O2SAT 91
[2024-01-08] MEDS: FUROSEMIDE injection 250 MG in D5W 225 ML IV SCH (18:53)
[2024-01-08 19:40] VITALS: BP 120/65; TEMP 97.5; O2SAT 90
[2024-01-08] MEDS: BISACODYL 10MG SUPP PR SCH (20:38)
[2024-01-08] MEDS: GABAPENTIN 100 MG CAP PO SCH (20:51)
[2024-01-08] MEDS: PANTOPRAZOLE 40MG TAB (PROTONIX) PO SCH (20:52)
[2024-01-09 00:46] VITALS: BP 98/62
[2024-01-09 05:46] VITALS: BP 100/56; TEMP 97.3; O2SAT 98
[2024-01-09 06:50] LABS: HEMATOCRIT 31.1 % (42.0-52.0); HEMOGLOBIN 9.9 g/dl (13.5-17.5); MEAN CORPUSCULAR HEMOGLOBIN 27.9 pg (27.0-33.0); MEAN CORPUSCULAR HGB CONC 31.8 g/dl (32.0-36.5); MEAN CORPUSCULAR VOLUME 87.6 fl (80.0-96.0); NEUTROPHILS % 74.4 % (36.0-66.0); PLATELET COUNT, AUTOMATED 136 10^3/uL (150-450); RED BLOOD COUNT 3.55 10^6/uL (4.30-6.10); WHITE BLOOD COUNT 4.5 10^3/uL (4.0-10.0)
[2024-01-09 06:51] LABS: BASO % 0.4 % (0.0-1.0); EOS # 0.1 10^3/uL (0.0-0.5); EOS % 1.3 % (0.0-3.0); LYMPH # 0.6 10^3/uL (1.5-5.0); LYMPH % 13.4 % (24.0-44.0); MONO # 0.4 10^3/uL (0.0-0.8); MONO % 9.6 % (2.0-8.0); NEUTROPHILS # 3.3 10^3/uL (1.5-8.5)
[2024-01-09 07:13] LABS: BLOOD UREA NITROGEN 28 MG/DL (9-23); CALCIUM LEVEL 9.4 MG/DL (8.3-10.6); CARBON DIOXIDE LEVEL 30 MMOL/L (20-31); CHLORIDE LEVEL 100 MMOL/L (98-107); CREATININE FOR GFR 0.92 MG/DL (0.70-1.30); GLOMERULAR FILTRATION RATE > 60.0 (>42); GLUCOSE, FASTING 85 MG/DL (74-106); POTASSIUM SERUM 3.4 MMOL/L (3.5-5.1); SODIUM LEVEL 137 MMOL/L (136-145)
[2024-01-09] MEDS: ASCORBIC ACID 500 MG TAB PO SCH (07:59)
[2024-01-09] MEDS: ENOXAPARIN 40MG/0.4ML SYRINGE (J1650 PER 10MG) SC SCH (07:59)
[2024-01-09 14:00] VITALS: BP 123/61; TEMP 97.3; O2SAT 91
[2024-01-09] MEDS: PERCOCET 5MG/325MG TAB PO PRN (15:31)
[2024-01-09] MEDS: MIDODRINE 5 MG TAB PO SCH (15:32)
[2024-01-09 20:50] VITALS: BP 110/59; TEMP 98.1; O2SAT 91
[2024-01-09] MEDS: POTASSIUM CHLORIDE 10MEQ SR TABLET PO ONE (21:52)
[2024-01-10 00:41] LABS: BLOOD UREA NITROGEN 23 MG/DL (9-23); CALCIUM LEVEL 9.2 MG/DL (8.3-10.6); CARBON DIOXIDE LEVEL 31 MMOL/L (20-31); CHLORIDE LEVEL 99 MMOL/L (98-107); CREATININE FOR GFR 1.04 MG/DL (0.70-1.30); GLOMERULAR FILTRATION RATE > 60.0 (>42); GLUCOSE, FASTING 111 MG/DL (74-106); POTASSIUM SERUM 3.4 MMOL/L (3.5-5.1); SODIUM LEVEL 139 MMOL/L (136-145)
[2024-01-10 05:44] VITALS: BP 107/65; TEMP 97.9; O2SAT 93
[2024-01-10 06:18] LABS: HEMATOCRIT 32.2 % (42.0-52.0); HEMOGLOBIN 10.3 g/dl (13.5-17.5); MEAN CORPUSCULAR VOLUME 87.5 fl (80.0-96.0); RED BLOOD COUNT 3.68 10^6/uL (4.30-6.10); WHITE BLOOD COUNT 4.6 10^3/uL (4.0-10.0)
[2024-01-10 06:19] LABS: BASO % 0.2 % (0.0-1.0); EOS % 0.7 % (0.0-3.0); LYMPH # 0.7 10^3/uL (1.5-5.0); LYMPH % 15.4 % (24.0-44.0); MONO # 0.4 10^3/uL (0.0-0.8); MONO % 9.7 % (2.0-8.0); NEUTROPHILS # 3.3 10^3/uL (1.5-8.5); NEUTROPHILS % 73.1 % (36.0-66.0); PLATELET COUNT, AUTOMATED 149 10^3/uL (150-450)
[2024-01-10 06:29] LABS: BLOOD UREA NITROGEN 27 MG/DL (9-23); CALCIUM LEVEL 9.5 MG/DL (8.3-10.6); CARBON DIOXIDE LEVEL 32 MMOL/L (20-31); CHLORIDE LEVEL 99 MMOL/L (98-107); CREATININE FOR GFR 1.06 MG/DL (0.70-1.30); GLOMERULAR FILTRATION RATE > 60.0 (>42); GLUCOSE, FASTING 89 MG/DL (74-106); POTASSIUM SERUM 3.5 MMOL/L (3.5-5.1); SODIUM LEVEL 138 MMOL/L (136-145)
[2024-01-10] MEDS: FENTANYL REMOVAL DOCUMENTATION MISC XX SCH (09:07)
[2024-01-10] MEDS: fentaNYL 75 MCG/HR PATCH TD SCH (09:09)
[2024-01-10] MEDS: APIXABAN 5 MG TAB (ELIQUIS) PO SCH (09:10)
[2024-01-10] MEDS: SENNA 8.6 MG TAB (SENOKOT) PO PRN (09:10)
[2024-01-10] MEDS: DOCUSATE SODIUM 100MG CAPSULE PO PRN (09:10)
[2024-01-10 09:17] VITALS: BP 110/66
[2024-01-10 14:00] VITALS: BP 107/65; TEMP 97.5; O2SAT 90
[2024-01-10 20:45] VITALS: BP 100/58; TEMP 97.7; O2SAT 92
[2024-01-11 05:18] VITALS: BP 118/66; TEMP 97.9; O2SAT 89
[2024-01-11 06:26] LABS: BASO % 0.4 % (0.0-1.0); EOS % 0.6 % (0.0-3.0); HEMATOCRIT 31.5 % (42.0-52.0); HEMOGLOBIN 10.3 g/dl (13.5-17.5); LYMPH # 0.6 10^3/uL (1.5-5.0); LYMPH % 12.7 % (24.0-44.0); MEAN CORPUSCULAR HGB CONC 32.7 g/dl (32.0-36.5); MEAN CORPUSCULAR VOLUME 85.6 fl (80.0-96.0); MONO # 0.5 10^3/uL (0.0-0.8); MONO % 10.3 % (2.0-8.0); NEUTROPHILS # 3.7 10^3/uL (1.5-8.5); NEUTROPHILS % 74.4 % (36.0-66.0); PLATELET COUNT, AUTOMATED 175 10^3/uL (150-450); RED BLOOD COUNT 3.68 10^6/uL (4.30-6.10)
[2024-01-11 06:49] LABS: BLOOD UREA NITROGEN 28 MG/DL (9-23); CALCIUM LEVEL 9.6 MG/DL (8.3-10.6); CARBON DIOXIDE LEVEL 32 MMOL/L (20-31); CHLORIDE LEVEL 100 MMOL/L (98-107); GLOMERULAR FILTRATION RATE > 60.0 (>42); GLUCOSE, FASTING 95 MG/DL (74-106); POTASSIUM SERUM 3.3 MMOL/L (3.5-5.1); SODIUM LEVEL 137 MMOL/L (136-145)
[2024-01-11 09:02] VITALS: BP 119/66
[2024-01-11 12:38] VITALS: BP 120/66
[2024-01-11 14:00] VITALS: BP 112/64; TEMP 97.2; O2SAT 90
[2024-01-11 20:06] VITALS: BP 113/66; TEMP 97.5; O2SAT 93
[2024-01-12 04:00] VITALS: BP 106/52; TEMP 97; O2SAT 91
[2024-01-12 05:24] VITALS: O2SAT 86
[2024-01-12 05:28] VITALS: O2SAT 95
[2024-01-12 07:32] LABS: BASO % 0.6 % (0.0-1.0); EOS % 0.7 % (0.0-3.0); HEMATOCRIT 31.3 % (42.0-52.0); HEMOGLOBIN 10.1 g/dl (13.5-17.5); LYMPH # 0.7 10^3/uL (1.5-5.0); MEAN CORPUSCULAR HEMOGLOBIN 28.1 pg (27.0-33.0); MEAN CORPUSCULAR HGB CONC 32.3 g/dl (32.0-36.5); MEAN CORPUSCULAR VOLUME 87.2 fl (80.0-96.0); MONO # 0.6 10^3/uL (0.0-0.8); MONO % 10.4 % (2.0-8.0); PLATELET COUNT, AUTOMATED 185 10^3/uL (150-450); RED BLOOD COUNT 3.59 10^6/uL (4.30-6.10); WHITE BLOOD COUNT 5.4 10^3/uL (4.0-10.0)
[2024-01-12 08:03] LABS: BLOOD UREA NITROGEN 28 MG/DL (9-23); CALCIUM LEVEL 9.3 MG/DL (8.3-10.6); CARBON DIOXIDE LEVEL 31 MMOL/L (20-31); CHLORIDE LEVEL 101 MMOL/L (98-107); CREATININE FOR GFR 0.78 MG/DL (0.70-1.30); GLOMERULAR FILTRATION RATE > 60.0 (>42); GLUCOSE, FASTING 95 MG/DL (74-106); POTASSIUM SERUM 3.6 MMOL/L (3.5-5.1); SODIUM LEVEL 140 MMOL/L (136-145)
[2024-01-12] MEDS ORDERED: MORPHINE 2 MG/ML 1ML VIAL IV PRN (10:20)
[2024-01-12] MEDS ORDERED: LORazepam 2 MG/ML 1ML VIAL IV PRN (10:20)
[2024-01-12] MEDS: LORazepam 1 MG TAB PO PRN (13:43)
[2024-01-13 09:54] VITALS: O2SAT 97
[2024-01-15] MEDS: MORPHINE 10MG/0.5ML ORAL CONCENTRATE SOLUTION U/D SL PRN (20:34)
[2024-01-17] MEDS: APIXABAN 5 MG TAB (ELIQUIS) PO SCH (09:17)
[2024-01-20] MEDS: ONDANSETRON 4MG ORAL DISINTEGRATING TAB PO PRN (01:05)
[2024-01-20] MEDS ORDERED: ENTER DRUG NAME HERE (PATIENT'S OWN MED) SL PRN (18:45)
[2024-01-21] MEDS: BENZONATATE 100MG CAPSULE PO SCH (09:00)
[2024-01-21] MEDS: guaiFENesin SYRUP 200MG 10ML UDC PO PRN (15:28)
[2024-01-25] MEDS: SIMETHICONE 80MG CHEW TAB PO PRN (21:43)
[2024-01-29] MEDS: MORPHINE 10MG/0.5ML ORAL CONCENTRATE SOLUTION U/D SL PRN (17:58)
[2024-02-01] MEDS: BACLOFEN 10 MG TAB PO ONE (01:57)
[2024-02-01] MEDS: SCOPOLAMINE 1MG TRANSDERMAL PATCH TOP PRN (08:36)
[2024-02-02] MEDS: ATROPINE SULFATE 1% OPHTH SOLN 2ML BTL SL PRN (08:55)
[2024-02-05] MEDS ORDERED: BISACODYL 10MG SUPP PR PRN (17:25)
== END 2024-02-15 18:08 | disposition expired | DRG 947 ==
LOC: M ED 08:08 → EDBD 08:08 → M ED INP 11:11 → ENRESERV 13:29 → M MSPAV 16:22
PROVIDERS: ADMIT General Practice; ATTEND Hospitalist
PROC: B246ZZZ Ultrasonography of Right and Left Heart (ICD-10-PCS; principal; 2024-01-11)
DX: G89.3 Neoplasm related pain (acute) (chronic) (principal); I50.31 Acute diastolic (congestive) heart failure; J96.01 Acute respiratory failure with hypoxia; C79.51 Secondary malignant neoplasm of bone; K56.7 Ileus, unspecified; M84.58XA Pathological fracture in neoplastic disease, other specified site, initial encounter for fracture; I82.401 Acute embolism and thrombosis of unspecified deep veins of right lower extremity; C78.00 Secondary malignant neoplasm of unspecified lung; Z66 Do not resuscitate; I77.1 Stricture of artery; I73.9 Peripheral vascular disease, unspecified; C61 Malignant neoplasm of prostate; E78.5 Hyperlipidemia, unspecified; I71.40 Abdominal aortic aneurysm, without rupture, unspecified; K76.0 Fatty (change of) liver, not elsewhere classified; Z87.891 Personal history of nicotine dependence; Z79.891 Long term (current) use of opiate analgesic; Z79.899 Other long term (current) drug therapy; Z11.52 Encounter for screening for COVID-19; Z92.3 Personal history of irradiation; Z92.21 Personal history of antineoplastic chemotherapy; Z51.5 Encounter for palliative care; R57.1 Hypovolemic shock